=== PATIENT | male | born 1975 | race Two or more races ===

== ENCOUNTER 2020-06-24 06:42 | Inpatient (IN) | payer SELFPAY ==
[2020-06-24] VITALS (8 sets, daily range): BP systolic 87–109; BP diastolic 50–62
[~2020-06-24] VITALS: Ht 170.2 cm; Wt 97.7 kg
--- NOTE | 2020-06-24 07:07 | PHYS DOC ---
Past Medical History Past Medical History: Diabetes-Type II Past Surgical History: No Surgical History Smoking Status: Never Smoker Alcohol Use: None General Adult EDM: Chief Complaint: ABSCESS HPI: HPI: Patient is a 44 year old male with history of diabetes who presents with abscess on the right buttocks area. Patient noticed it approximately 5 days ago. Is been getting progressively worse over the weekend. He cannot sit without it being painful. He is having difficulty walking. Patient is compliant diabetic. Denies fever chills nausea vomiting diarrhea constipation numbness weakness dysuria hematuria abdominal pain. Patient has never had anything like this in the past. Patient is accompanied by his son who is translating. Review of Systems: Review of Systems: Review of Systems: Constitutional: Denies fever or chills Eyes: Denies redness or eye pain HENT: Denies nasal congestion or sore throat Respiratory: Denies cough or shortness of breath Cardiovascular: Denies chest pain or palpitations GI: denies abdominal pain and nausea, denies vomiting or diarrhea : Denies dysuria or hematuria Musculoskeletal: Denies back pain or joint pain Integument: Denies rash or skin lesions Neurologic: Denies headache, focal weakness or sensory changes Heart Score: C/O Chest Pain: No Physical Exam: PE: *GENERAL APPEARANCE: Awake and alert. Cooperative. No acute distress. Non toxic appearing. HEAD: Normocephalic. Atraumatic. EYES: EOM's grossly intact. Sclera anicteric. Conjunctiva clear ENT:. Airway patent. Mucous membranes moist. No trismus. Tolerating secretions. NECK: Supple. Trachea midline. HEART: Regular rate and rhythm. Radial pulses 2+. Good capillary refill. LUNGS: Respirations unlabored. Clear to auscultation bilaterally. No rales, rhonchi, wheezing or retractions. ABDOMEN: Soft. Non-tender. No guarding or rebound. . Area of fluctuance and induration on the right buttocks cheek in the gluteal cleft. Does appear to have some drainage. No tenderness palpation over the perineum. No crepitus in this area. No scrotal erythema or edema. EXTREMITIES: No acute deformities. No edema, erythema or calf tenderness. SKIN: Warm and dry. No rash. NEUROLOGICAL: Alert and oriented x3. No gross neurological deficits. Moves all 4 extremities spontaneously. PSYCHIATRIC: Normal mood. Current Patient Data: Vital Signs: Vital Signs Date Time Temp Pulse Resp B/P (MAP) Pulse Ox O2 Delivery O2 Flow Rate FiO2 06/24/20 06:49 99.1 87 18 127/82 (97) 96 Room Air 99.1 EKG: EKG: [] Radiology/Procedures: Radiology/Procedures: PROCEDURE: CT PELVIS W/CONTRAST Exam: CT pelvis with intravenous contrast Indication: Abscess in gluteal region. Evaluate for perirectal abscess. Comparison: None Technique: Helical CT imaging performed of the pelvis after the intravenous adm inistration of 75 mL Omnipaque 300 intravenous contrast. Sagittal and coronal reformats were obtained. One or more of the following individualized dose reduction techniques were utilized for this examination: 1. Automated exposure control 2. Adjustment of the mA and/or kV according to patient size 3. Use of iterative reconstruction technique. Findings: There is a subcutaneous abscess along the gluteal cleft on the right measuring approximately 4.0 x 1.6 x 2.3 cm (CC by transverse by AP). This has a sinus tract extending toward the anus where there is another collection measuring approximately 1.5 x 0.7 x 2.0 cm. No perirectal abscess. Small fat-containing umbilical hernia. Visualized bowel is unremarkable. Prostate gland is normal. Probable bladder diverticulum on the left. No lymphadenopathy. Impression: Subcutaneous abscess along the right gluteal cleft extending to the perianal region. No perirectal abscess. Electronically signed by: Melanie Esparza MD (06/24/2020 9:04 AM) [id number] DICTATED and SIGNED BY: MELANIE ESPARZA MD DATE: 06/24/20 [id number] 0 Course & Med Decision Making: Course & Med Decision Making Medical decision making: This is a 44-year-old male presents with abscess to the right buttocks area. Started 5 days ago has been getting progressively worse. Patient is diabetic. Temperature 99.1. Vital signs otherwise stable. Labs: No leukocytosis. Blood sugar 234. Nondiabetic ketoacidosis. CT pelvis: Abscess along the gluteal cleft. Sinus tract extending toward the anus where there is another collection. Patient was given broad-spectrum antibiotics. I did speak with the on-call general surgeon Dr. Greene. I explain the patient's symptoms CT findings and medical history. Agreed to evaluate the patient for I&D in the OR. At this time based on patient's symptoms and findings will admit to the hospital for further observation and evaluation. Spoke with patient. Agreeable to admission. They are aware of all labs and imaging. All questions answered and patient stable at time of admission. Anahi Disclaimer: Anahi Disclaimer: This electronic medical record was generated, in whole or in part, using a voice recognition dictation system. Departure Departure Impression: Primary Impression: Gluteal abscess Additional Impression: Hyperglycemia Disposition: ADMITTED INPT THIS HOSP (spoke with Dr. ng at 1045. Accepts admission. Will see the patient. Agrees to plan. Patient stable at time of admission.) Scripts Amoxicillin/Potassium Clav (AUGMENTIN 875-125 TABLET) 1 Each Tablet 1 TAB PO BID for infection for 10 Days, #20 TAB 0 Refills Prov: WALTER NG MD 06/25/20 Insulin Glargine,Hum.rec.anlog (LANTUS) 100 Unit/1 Ml Vial 8 UNIT SQ QHS for diabetes for 30 Days, #1 EACH Prov: WALTER NG MD 06/25/20 Lactobacillus Rhamnosus Gg (CULTURELLE) 1 Each Cap.sprink 1 CAP PO BID for supplement for 30 Days, #60 CAP Prov: WALTER NG MD 06/25/20 Docusate Sodium (DOK) 100 Mg Capsule 100 MG PO BID for prevent hard stools for 30 Days, #60 CAP Prov: WALTER NG MD 06/25/20 Acetaminophen (ACETAMINOPHEN) 325 Mg Tablet 650 MG PO PRN Q4HRS PRN for TEMP OVER 100.4F OR MILD PAIN for 30 Days, #60 TAB Prov: WALTER NG MD 06/25/20 KIANA VINCENT DO Jun 24, 2020 07:07
[2020-06-24] MEDS ORDERED: MORPHINE SULFATE 4 MG/ML VIAL. IM ONE (07:15)
[2020-06-24 07:35] LABS: BASO % 0 % (0-3); EOS # 0.1 x10^3/uL (0.0-0.7); EOS % 1 % (0-3); HEMATOCRIT 43.2 % (39.0-53.0); HEMOGLOBIN 14.7 g/dL (13.0-17.5); LYMPH # 1.8 x10^3/uL (1.0-4.8); LYMPH % 21 % (24-48); MEAN CORPUSCULAR HEMOGLOBIN 29 pg (25-35); MEAN CORPUSCULAR HGB CONC 34 g/dL (31-37); MEAN CORPUSCULAR VOLUME 85 fL (79-100); MONO # 0.7 x10^3/uL (0.0-1.1); MONO % 9 % (0-9); NEUT # 6.1 x10^3/uL (1.8-7.7); NEUT % 70 % (31-73); PLATELET COUNT 209 x10^3/uL (140-400); RED BLOOD COUNT 5.07 x10^6/uL (4.30-5.70); RED CELL DISTRIBUTION WIDTH 13.6 % (11.5-14.5); WHITE BLOOD COUNT 8.8 x10^3/uL (4.0-11.0)
[2020-06-24 07:46] LABS: CALCIUM 8.7 mg/dL (8.5-10.1); GFR 80.8; POTASSIUM 4.1 mmol/L (3.5-5.1)
[2020-06-24 07:52] LABS: ALBUMIN 2.7 g/dL (3.4-5.0); ALBUMIN/GLOBULIN RATIO 0.6 (1.0-1.7); TOTAL BILIRUBIN 0.2 mg/dL (0.2-1.0); TOTAL PROTEIN 7.6 g/dL (6.4-8.2)
[2020-06-24] MEDS ORDERED: IOHEXOL 350 MG/ML 100 ML VIAL. IV ONE (08:15)
[2020-06-24] MEDS ORDERED: CONTRAST GIVEN. MC PRN (08:30)
--- NOTE | 2020-06-24 09:06 | RAD ---
Exam: CT pelvis with intravenous contrast Indication: Abscess in gluteal region. Evaluate for perirectal abscess. Comparison: None Technique: Helical CT imaging performed of the pelvis after the intravenous administration of 75 mL O mnipaque 300 intravenous contrast. Sagittal and coronal reformats were obtained. One or more of the following individualized dose reduction techniques were utilized for this examinat ion: 1. Automated exposure control 2. Adjustment of the mA and/or kV according to patient size 3. Use of iterative reconstruction technique. Findings: There is a subcutaneous abscess along the gluteal cleft on the right measuring approximately 4.0 x 1. 6 x 2.3 cm (CC by transverse by AP). This has a sinus tract extending toward the anus where there is another collection measuring approximately 1.5 x 0.7 x 2.0 cm. No perirectal abscess. Small fat-conta ining umbilical hernia. Visualized bowel is unremarkable. Prostate gland is normal. Probable bladder diverticulum on the left. No lymphadenopathy. Impression: Subcutaneous abscess along the right gluteal cleft extending to the perianal region. No p erirectal abscess. Electronically signed by: Melanie Esparza MD (06/24/2020 9:04 AM) [id number]
[2020-06-24] MEDS: LIDOCAINE 1% PF 2 ML VIAL. SQ ONE ×2 (09:30→09:34)
[2020-06-24] MEDS ORDERED: VANCOMYCIN 2 GM in IV NORMAL SALINE 500ML BAG 500 ML IV ONE (10:30)
[2020-06-24] MEDS ORDERED: PIPERACILLIN/TAZOBACTAM 3.375 GM in IV NORMAL SALINE 50ML 50 ML IV ONE (10:30)
[2020-06-24] MEDS ORDERED: VANCOMYCIN 1.25 GM in IV NORMAL SALINE 250ML 250 ML IV ONE (10:30)
--- NOTE | 2020-06-24 10:31 | PDOC2 ---
[facility] 06/24/20 1031: CONSULT Date of Consult Date of Consult DATE: 06/24/20 TIME: 10:24 Reason for Consult Reason for Consult: abscess Referring Physician Referring Physician: ER Identification/Chief Complaint Chief Complaint gluteal pain Source Source: Chart review, Patient (family translates ) History of Present Illness Reason for Visit: Rectal pain and swelling since , did have some diarrhea last week. Did have some bloody drainage from area, but has continued to have worsening pain and swelling to area. No hx of skin infections Ct reviewed, subq extending to kavitha anal area Past Medical History Past Medical History hx of covid Endocrine: Diabetes Past Surgical History Past Surgical History: No pertinent history Family History Family History: Other (noncontributory to current illness ) Social History No ALCOHOL: none Drugs: None Lives: with Family Current Medications Current Medications Current Medications Morphine Sulfate (Morphine Sulfate) 4 mg 1X ONCE IM Last administered on 06/24/20at 07:32; Start 06/24/20 at 07:15; Stop 06/24/20 at 07:24; Status DC Iohexol (Omnipaque 350 Mg/ml) 75 ml 1X ONCE IV Last administered on 06/24/20at 0 8:36; Start 06/24/20 at 08:15; Stop 06/24/20 at 08:16; Status DC Info (CONTRAST GIVEN -- Rx MONITORING) 1 each PRN DAILY PRN MC SEE COMMENTS; Start 06/24/20 at 08:30; Stop 06/26/20 at 08:29 Lidocaine HCl (Xylocaine-Mpf 1% 2ml Vial) 10 ml 1X ONCE SQ Last administered on 06/24/20at 09:34; Start 06/24/20 at 09:30; Stop 06/24/20 at 09:31; Status DC Allergies Allergies: Coded Allergies: No Known Drug Allergies (Unverified , 06/24/20) ROS General: No: Chills, Other (fevers ) PSYCHOLOGICAL ROS: No: Anxiety, Depression Eyes: No Blurry vision, No Double vision HEENT: No: Heacaches, Sore Throat Hematological and Lymphatic: No: Bleeding Problems, Blood Clots Respiratory: No: Cough, Shortness of breath Cardiovascular: No Chest Pain, No Palpitations Gastrointestinal: No Nausea, No Vomiting, No Abdominal Pain Genitourinary: No Dysuria, No Incontinence Musculoskeletal: No Gait Disturbance, No Joint Pain, No Muscular Weakness Neurological: No Confusion, No Impaired Coord/balance Skin: Yes Other (swelling in rectal area ); No Pruritus Physical Exam General: Alert, Oriented X3, Cooperative Lungs: Clear to auscultation, Normal air movement Heart: Regular rate, Normal S1, Normal S2 Abdomen: Soft, No tenderness, No hepatosplenomegaly Extremities: No clubbing, No cyanosis Skin: Other (right gluteal area with significant tenderness on exam, difficult to fully examine due to pain, there is small amount of drainage, however still with induration, fluctunace ) Neuro: Normal speech, Sensation intact Psych/Mental Status: Mental status NL, Mood NL MUSCULOSKELETAL: No deformity, No swelling Vitals VITALS Vital Signs Date Time Temp Pulse Resp B/P (MAP) Pulse Ox O2 Delivery O2 Flow Rate FiO2 06/24/20 09:35 82 20 105/61 (76) 96 Room Air 06/24/20 06:49 99.1 99.1 Labs Labs Laboratory Tests Test 06/24/20 07:20 White Blood Count 8.8 x10^3/uL (4.0-11.0) Red Blood Count 5.07 x10^6/uL (4.30-5.70) Hemoglobin 14.7 g/dL (13.0-17.5) Hematocrit 43.2 % (39.0-53.0) Mean Corpuscular Volume 85 fL (79-100) Mean Corpuscular Hemoglobin 29 pg (25-35) Mean Corpuscular Hemoglobin Concent 34 g/dL (31-37) Red Cell Distribution Width 13.6 % (11.5-14.5) Platelet Count 209 x10^3/uL (140-400) Neutrophils (%) (Auto) 70 % (31-73) Lymphocytes (%) (Auto) 21 % (24-48) Monocytes (%) (Auto) 9 % (0-9) Eosinophils (%) (Auto) 1 % (0-3) Basophils (%) (Auto) 0 % (0-3) Neutrophils # (Auto) 6.1 x10^3/uL (1.8-7.7) Lymphocytes # (Auto) 1.8 x10^3/uL (1.0-4.8) Monocytes # (Auto) 0.7 x10^3/uL (0.0-1.1) Eosinophils # (Auto) 0.1 x10^3/uL (0.0-0.7) Basophils # (Auto) 0.0 x10^3/uL (0.0-0.2) Sodium Level 137 mmol/L (136-145) Potassium Level 4.1 mmol/L (3.5-5.1) Chloride Level 103 mmol/L (98-107) Carbon Dioxide Level 25 mmol/L (21-32) Anion Gap 9 (6-14) Blood Urea Nitrogen 12 mg/dL (8-26) Creatinine 1.0 mg/dL (0.7-1.3) Estimated GFR (Cockcroft-Gault) 80.8 BUN/Creatinine Ratio 12 (6-20) Glucose Level 234 mg/dL (70-99) Calcium Level 8.7 mg/dL (8.5-10.1) Total Bilirubin 0.2 mg/dL (0.2-1.0) Aspartate Amino Transf (AST/SGOT) 11 U/L (15-37) Alanine Aminotransferase (ALT/SGPT) 30 U/L (16-63) Alkaline Phosphatase 74 U/L (46-116) Total Protein 7.6 g/dL (6.4-8.2) Albumin 2.7 g/dL (3.4-5.0) Albumin/Globulin Ratio 0.6 (1.0-1.7) Laboratory Tests Test 06/24/20 07:20 White Blood Count 8.8 x10^3/uL (4.0-11.0) Red Blood Count 5.07 x10^6/uL (4.30-5.70) Hemoglobin 14.7 g/dL (13.0-17.5) Hematocrit 43.2 % (39.0-53.0) Mean Corpuscular Volume 85 fL (79-100) Mean Corpuscular Hemoglobin 29 pg (25-35) Mean Corpuscular Hemoglobin Concent 34 g/dL (31-37) Red Cell Distribution Width 13.6 % (11.5-14.5) Platelet Count 209 x10^3/uL (140-400) Neutrophils (%) (Auto) 70 % (31-73) Lymphocytes (%) (Auto) 21 % (24-48) Monocytes (%) (Auto) 9 % (0-9) Eosinophils (%) (Auto) 1 % (0-3) Basophils (%) (Auto) 0 % (0-3) Neutrophils # (Auto) 6.1 x10^3/uL (1.8-7.7) Lymphocytes # (Auto) 1.8 x10^3/uL (1.0-4.8) Monocytes # (Auto) 0.7 x10^3/uL (0.0-1.1) Eosinophils # (Auto) 0.1 x10^3/uL (0.0-0.7) Basophils # (Auto) 0.0 x10^3/uL (0.0-0.2) Sodium Level 137 mmol/L (136-145) Potassium Level 4.1 mmol/L (3.5-5.1) Chloride Level 103 mmol/L (98-107) Carbon Dioxide Level 25 mmol/L (21-32) Anion Gap 9 (6-14) Blood Urea Nitrogen 12 mg/dL (8-26) Creatinine 1.0 mg/dL (0.7-1.3) Estimated GFR (Cockcroft-Gault) 80.8 BUN/Creatinine Ratio 12 (6-20) Glucose Level 234 mg/dL (70-99) Calcium Level 8.7 mg/dL (8.5-10.1) Total Bilirubin 0.2 mg/dL (0.2-1.0) Aspartate Amino Transf (AST/SGOT) 11 U/L (15-37) Alanine Aminotransferase (ALT/SGPT) 30 U/L (16-63) Alkaline Phosphatase 74 U/L (46-116) Total Protein 7.6 g/dL (6.4-8.2) Albumin 2.7 g/dL (3.4-5.0) Albumin/Globulin Ratio 0.6 (1.0-1.7) Assessment/Plan Assessment/Plan gluteal abscess with tract to kavitha anal area--significant pain on exam--will likely require operative I&D NPO, abx will check SARA Fonseca MD 06/24/20 9795: CONSULT Assessment/Plan Assessment/Plan Pt seen and examined. Agree with Ms. Rock's note Pt with c/o buttock pain right perianal area with induration and fluctuance TO OR for I and D. R/R/R/B/A d/w pt and pt's supportive family. Thanks for consult! KOSTA ROCK APRN Jun 24, 2020 10:31 SARA PARK MD Jun 24, 2020 13:22
[2020-06-24] MEDS ORDERED: MORPHINE SULFATE 4 MG/ML VIAL. IV PRN (10:45)
--- NOTE | 2020-06-24 11:33 | PDOC1 ---
History and Physical Date of Admission Date of Admission DATE: 06/24/20 TIME: 11:33 Identification/Chief Complaint Chief Complaint HERMELINDO RECTAL PAIN Area of fluctuance and induration on the right buttocks cheek in the gluteal cleft. DICTATED History of Present Illness History of Present Illness presented with abscess on the right buttocks area. began approximately 5 days ago. Is been getting progressively worse over the weekend. He cannot sit without it being painful., difficulty walking. is diabetic. Denies fever chills nausea vomiting diarrhea constipation numbness weakness dysuria hematuria abdominal pain Past Medical History Endocrine: Diabetes Past Surgical History Past Surgical History: No pertinent history Family History Family History: Diabetes, Hypertension, Other (noncontributory to current illness ) Social History Smoke: No ALCOHOL: none Drugs: None Current Medications Current Medications Current Medications Morphine Sulfate (Morphine Sulfate) 4 mg 1X ONCE IM Last administered on 06/24/20at 07:32; Start 06/24/20 at 07:15; Stop 06/24/20 at 07:24; Status DC Iohexol (Omnipaque 350 Mg/ml) 75 ml 1X ONCE IV Last administered on 06/24/20at 08:36; Start 06/24/20 at 08:15; Stop 06/24/20 at 08:16; Status DC Info (CONTRAST GIVEN -- Rx MONITORING) 1 each PRN DAILY PRN MC SEE COMMENTS; Katherine tart 06/24/20 at 08:30; Stop 06/26/20 at 08:29 Lidocaine HCl (Xylocaine-Mpf 1% 2ml Vial) 10 ml 1X ONCE SQ ; Start 06/24/20 at 09:30; Stop 06/24/20 at 09:31; Status DC Vancomycin HCl 1.25 gm/Sodium Chloride 250 ml @ 166.667 mls/hr 1X ONCE IV ; Start 06/24/20 at 10:30; Stop 06/24/20 at 11:59; Status UNV Piperacillin Sod/ Tazobactam Sod 3.375 gm/Sodium Chloride 50 ml @ 100 mls/hr 1X ONCE IV Last administered on 06/24/20at 10:51; Start 06/24/20 at 10:30; Stop 06/24/20 at 10:59; Status DC Vancomycin HCl 2 gm/Sodium Chloride 500 ml @ 250 mls/hr 1X ONCE IV ; Start 06/24/20 at 10:30; Stop 06/24/20 at 12:29 Morphine Sulfate (Morphine Sulfate) 4 mg PRN Q4HRS PRN IV PAIN; Start 06/24/20 at 10:45; Stop 06/25/20 at 10:44 Allergies Allergies: Coded Allergies: No Known Drug Allergies (Unverified , 06/24/20) ROS General: No: Chills, Night Sweats, Fatigue, Malaise, Appetite, Other PSYCHOLOGICAL ROS: No: Anxiety, Behavioral Disorder, Concentration difficultie, Decreased libido, Depression, Disorientation, Hallucinations, Hostility, Irritablity, Memory difficulties, Mood Swings, Obsessive thoughts, Physical abuse, Sexual abuse, Sleep disturbances, Suicidal ideation, Other Eyes: No Blurry vision, No Decreased vision, No Double vision, No Dry eyes, No Excessive tearing, No Eye Pain, No Itchy Eyes, No Loss of vision, No Photophobia, No Scotomata, No Uses contacts, No Uses glasses, No Other HEENT: No: Heacaches, Visual Changes, Hearing change, Nasal congestion, Nasal discharge, Oral lesions, Sinus pain, Sore Throat, Epistaxis, Sneezing, Snoring, Tinnitus, Vertigo, Vocal changes, Other ALLERGY AND IMMUNOLOGY: No: Hives, Insect Bite Sensitivity, Itchy/Watery Eyes, Nasal Congestion, Post Nasal Drip, Seasonal Allergies, Other Hematological and Lymphatic: No: Bleeding Problems, Blood Clots, Blood Transfusions, Brusing, Night Sweats, Pallor, Swollen Lymph Nodes, Other ENDOCRINE: No: Breast Changes, Galactorrhea, Hair Pattern Changes, Hot Flashes, Malaise/lethargy, Mood Swings, Palpitations, Polydipsia/polyuria, Skin Changes, Temperature Intolerance, Unexpected Weight Changes, Other Breast: No New/Changing Breast Lumps, No Nipple changes, No Nipple discharge, No Other Respiratory: No: Cough, Hemoptysis, Orthopnea, Pleuritic Pain, Shortness of breath, SOB with excertion, Sputum Changes, Stridor, Tachypnea, Wheezing, Other Cardiovascular: No Chest Pain, No Palpitations, No Orthopnea, No Paroxysmal Noc. Dyspnea, No Edema, No Lt Headedness, No Other Gastrointestinal: No Nausea, No Vomiting, No Abdominal Pain, No Diarrhea, No Constipation, No Melena, No Hematochezia, No Other Genitourinary: No Dysuria, No Frequency, No Incontinence, No Hematuria, No Retention, No Discharge, No Urgency, No Pain, No Flank Pain, No Other, No , No , No , No , No , No , No Musculoskeletal: Yes Gait Disturbance Neurological: Yes Gait Disturbance; No Behavorial Changes, No Bowel/Bladder ControlChng, No Confusion, No Dizziness, No Headaches, No Impaired Coord/balance, No Memory Loss, No Numbness/Tingling, No Seizures, No Speech Problems, No Tremors, No Visual Changes, No Weakness, No Other Skin: Yes Skin Lesion Changes; No Dry Skin, No Eczema, No Hair Changes, No Lumps, No Mole Changes, No Mottling, No Nail Changes, No Pruritus, No Rash, No Other, No Acne Physical Exam Physical Exam Area of fluctuance and induration on the right buttocks cheek in the gluteal cleft., very tender General: Alert, Oriented X3, Cooperative, mild distress, moderate distress, severe distress HEENT: PERRLA Lungs: Clear to auscultation, Normal air movement Heart: RRR Breasts: Not examined Abdomen: Normal bowel sounds, Soft, No tenderness Male Genitals Exam: normal genitalia Rectal Exam: other ( Area of fluctuance and induration on the right buttocks cheek in the gluteal cleft.) PELVIC: Examination not indicated Extremities: No cyanosis, No edema, Normal pulses Neuro: Normal speech, Strength at 5/5 X4 ext, Cranial nerves 3-12 NL Psych/Mental Status: Mental status NL, Mood NL Vitals Vitals Vital Signs Date Time Temp Pulse Resp B/P (MAP) Pulse Ox O2 Delivery O2 Flow Rate FiO2 06/24/20 10:51 89 20 111/64 (80) 94 Room Air 06/24/20 06:49 99.1 99.1 Labs Labs Laboratory Tests Test 06/24/20 07:20 White Blood Count 8.8 x10^3/uL (4.0-11.0) Red Blood Count 5.07 x10^6/uL (4.30-5.70) Hemoglobin 14.7 g/dL (13.0-17.5) Hematocrit 43.2 % (39.0-53.0) Mean Corpuscular Volume 85 fL (79-100) Mean Corpuscular Hemoglobin 29 pg (25-35) Mean Corpuscular Hemoglobin Concent 34 g/dL (31-37) Red Cell Distribution Width 13.6 % (11.5-14.5) Platelet Count 209 x10^3/uL (140-400) Neutrophils (%) (Auto) 70 % (31-73) Lymphocytes (%) (Auto) 21 % (24-48) Monocytes (%) (Auto) 9 % (0-9) Eosinophils (%) (Auto) 1 % (0-3) Basophils (%) (Auto) 0 % (0-3) Neutrophils # (Auto) 6.1 x10^3/uL (1.8-7.7) Lymphocytes # (Auto) 1.8 x10^3/uL (1.0-4.8) Monocytes # (Auto) 0.7 x10^3/uL (0.0-1.1) Eosinophils # (Auto) 0.1 x10^3/uL (0.0-0.7) Basophils # (Auto) 0.0 x10^3/uL (0.0-0.2) Sodium Level 137 mmol/L (136-145) Potassium Level 4.1 mmol/L (3.5-5.1) Chloride Level 103 mmol/L (98-107) Carbon Dioxide Level 25 mmol/L (21-32) Anion Gap 9 (6-14) Blood Urea Nitrogen 12 mg/dL (8-26) Creatinine 1.0 mg/dL (0.7-1.3) Estimated GFR (Cockcroft-Gault) 80.8 BUN/Creatinine Ratio 12 (6-20) Glucose Level 234 mg/dL (70-99) Calcium Level 8.7 mg/dL (8.5-10.1) Total Bilirubin 0.2 mg/dL (0.2-1.0) Aspartate Amino Transf (AST/SGOT) 11 U/L (15-37) Alanine Aminotransferase (ALT/SGPT) 30 U/L (16-63) Alkaline Phosphatase 74 U/L (46-116) Total Protein 7.6 g/dL (6.4-8.2) Albumin 2.7 g/dL (3.4-5.0) Albumin/Globulin Ratio 0.6 (1.0-1.7) Laboratory Tests Test 06/24/20 07:20 White Blood Count 8.8 x10^3/uL (4.0-11.0) Red Blood Count 5.07 x10^6/uL (4.30-5.70) Hemoglobin 14.7 g/dL (13.0-17.5) Hematocrit 43.2 % (39.0-53.0) Mean Corpuscular Volume 85 fL (79-100) Mean Corpuscular Hemoglobin 29 pg (25-35) Mean Corpuscular Hemoglobin Concent 34 g/dL (31-37) Red Cell Distribution Width 13.6 % (11.5-14.5) Platelet Count 209 x10^3/uL (140-400) Neutrophils (%) (Auto) 70 % (31-73) Lymphocytes (%) (Auto) 21 % (24-48) Monocytes (%) (Auto) 9 % (0-9) Eosinophils (%) (Auto) 1 % (0-3) Basophils (%) (Auto) 0 % (0-3) Neutrophils # (Auto) 6.1 x10^3/uL (1.8-7.7) Lymphocytes # (Auto) 1.8 x10^3/uL (1.0-4.8) Monocytes # (Auto) 0.7 x10^3/uL (0.0-1.1) Eosinophils # (Auto) 0.1 x10^3/uL (0.0-0.7) Basophils # (Auto) 0.0 x10^3/uL (0.0-0.2) Sodium Level 137 mmol/L (136-145) Potassium Level 4.1 mmol/L (3.5-5.1) Chloride Level 103 mmol/L (98-107) Carbon Dioxide Level 25 mmol/L (21-32) Anion Gap 9 (6-14) Blood Urea Nitrogen 12 mg/dL (8-26) Creatinine 1.0 mg/dL (0.7-1.3) Estimated GFR (Cockcroft-Gault) 80.8 BUN/Creatinine Ratio 12 (6-20) Glucose Level 234 mg/dL (70-99) Calcium Level 8.7 mg/dL (8.5-10.1) Total Bilirubin 0.2 mg/dL (0.2-1.0) Aspartate Amino Transf (AST/SGOT) 11 U/L (15-37) Alanine Aminotransferase (ALT/SGPT) 30 U/L (16-63) Alkaline Phosphatase 74 U/L (46-116) Total Protein 7.6 g/dL (6.4-8.2) Albumin 2.7 g/dL (3.4-5.0) Albumin/Globulin Ratio 0.6 (1.0-1.7) Images Images Exam: CT pelvis with intravenous contrast Indication: Abscess in gluteal region. Evaluate for perirectal abscess. Comparison: None Technique: Helical CT imaging performed of the pelvis after the intravenous admi nistration of 75 mL Omnipaque 300 intravenous contrast. Sagittal and coronal reformats were obtained. One or more of the following individualized dose reduction techniques were utilized for this examination: 1. Automated exposure control 2. Adjustment of the mA and/or kV according to patient size 3. Use of iterative reconstruction technique. Findings: There is a subcutaneous abscess along the gluteal cleft on the right measuring approximately 4.0 x 1.6 x 2.3 cm (CC by transverse by AP). This has a sinus tract extending toward the anus where there is another collection measuring approximately 1.5 x 0.7 x 2.0 cm. No perirectal abscess. Small fat-containing umbilical hernia. Visualized bowel is unremarkable. Prostate gland is normal. Probable bladder diverticulum on the left. No lymphadenopathy. Impression: Subcutaneous abscess along the right gluteal cleft extending to the perianal region. No perirectal abscess. Electronically signed by: Melanie Esparza MD (06/24/2020 9:04 AM) [id number] DICTATED and SIGNED BY: MELANIE ESPARZA MD DATE: 06/24/20 [id number] VTE Prophylaxis Ordered VTE Prophylaxis Devices: No VTE Pharmacological Prophylaxi: Yes Assessment/Plan Assessment/Plan IMPRESSION ACUTE subcutaneous abscess along the gluteal cleft on the right measuring approximately 4.0 x 1.6 x 2.3 cm (CC by transverse by AP). This has a sinus tract extending toward the anus where there is another collection measuring approximately 1.5 x 0.7 x 2.0 cm. No perirectal abscess. Small fat-containing u mbilical hernia. Visualized bowel is unremarkable. DIABETES gluteal abscess with tract to hermelindo anal area--significant pain on exam--will require operative I&D PLAN ADMIT IV FLUIDS NPO, IV ANTIBIOTICS SCREEN Covid BLOOD CULT SURGERY CONSULT ID CONSULT ss insulin DVT PROPHYLAXIS 65 MIN Justifications for Admission Other Justification WALTER NG MD Jun 24, 2020 11:33
[2020-06-24] MEDS ORDERED: ONDANSETRON PF 4 MG/2 ML VIAL. IV PRN (11:45)
[2020-06-24] MEDS ORDERED: LORazepam 0.5 MG TABLET PO PRN (11:45)
[2020-06-24] MEDS ORDERED: ALBUTEROL SULFATE 2.5 MG/3 ML NEBU. NEB PRN (11:45)
[2020-06-24] MEDS ORDERED: MAG HYDROX/ALUMINUM HYD/SIMETH 30 ML ORAL.SUSP PO PRN (11:45)
[2020-06-24] MEDS ORDERED: cloNIDine HCL 0.1 MG TABLET PO PRN (11:45)
[2020-06-24] MEDS ORDERED: guaiFENesin ORAL 200 MG/10 ML LIQUID. PO PRN (11:45)
[2020-06-24] MEDS ORDERED: ZOLPIDEM 5 MG TABLET. PO PRN (11:45)
[2020-06-24] MEDS ORDERED: DOCUSATE SODIUM 100 MG CAPSULE. PO PRN (11:45)
[2020-06-24] MEDS ORDERED: ACETAMINOPHEN 325 MG TABLET. PO PRN (11:45)
[2020-06-24] MEDS ORDERED: 0.9 % SODIUM CHLORIDE 10 ML DISP.SYRIN. IV PRN (11:45)
[2020-06-24] MEDS: INSULIN LISPRO 300 UNITS/3 ML VIAL. SQ SCH ×2 (12:00→17:48)
[2020-06-24] MEDS: ENOXAPARIN 40 MG/0.4 ML SYRINGE. SQ SCH (12:00)
[2020-06-24] MEDS ORDERED: HYDROmorphone 2 MG/ML VIAL IVP PRN ×2 (12:00→13:45)
[2020-06-24] MEDS ORDERED: DEXTROSE 50% 25 GM / 50ML DISP.SYRIN. IV PRN (12:00)
[2020-06-24] MEDS ORDERED: VANCOMYCIN PER PHARMACY MC PRN (12:00)
[2020-06-24] MEDS ORDERED: PIP/TAZO PER PHARMACY MC PRN (12:00)
--- NOTE | 2020-06-24 12:32 | HP ---
ADMIT DATE: 06/24/2020 CHIEF COMPLAINT: Perirectal pain with discomfort, drainage and bleeding. HISTORY OF PRESENT ILLNESS: This 44-year-old male presented with an abscess to the ER in the right buttocks, which began 5 days prior to admission. Pain has become progressively worse over the weekend. He cannot ambulate and is diabetic. He is accompanied by his son who notes no fever or vomiting, just severe pain. ct concerning for kavitha-rectal abscess PAST MEDICAL HISTORY: Significant for diabetes. FAMILY HISTORY: Hypertension and diabetes. SOCIAL HISTORY: No tobacco, alcohol or drug use. 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 CURRENT MEDICATIONS: Please see MAR. REVIEW OF SYSTEMS: Denies chills, fever, malaise. Denies decreased vision, headaches. Eyes insect sensitivity. Nasal congestion. Denies chest pain, shortness of breath, abdominal pain, diarrhea. Does have some rectal bleeding. No dysuria or incontinence. No hematuria. No urinary hesitancy. Denies bladder or bowel dysfunction. Denies eczema or hair changes. Complains mainly of perirectal pain and severe pain with ambulation and at rest. PHYSICAL EXAMINATION NECK: Supple. HEENT: Throat and pharynx are clear. RECTAL: There is an area of fluctuance and induration of the right buttocks and gluteal cleft, it was very tender. LUNGS: Clear. CARDIOVASCULAR: Regular rate and rhythm. ABDOMEN: Soft. Bowel sounds are normal. EXTREMITIES: Without cyanosis or edema. Capillary refill is less than 2 seconds. Normal speech. Strength is normal in all extremities. NEUROLOGIC: Cranial nerves 2-12 are grossly intact. Mental status is normal. Recent and remote memory are intact. Muscles of mastication are symmetric bilaterally. VITAL SIGNS: Temperature 99.1, blood pressure 111/64 was lower on admission, O2 sat 94%. LABORATORY DATA: White count is 8.8, hemoglobin 14.7, platelets 209,000, MCV is 85. Differential, 70 segs, 21 lymphocytes. Sodium is 137, potassium 4.1, CO2 of 35, BUN 12, creatinine 1.0, glucose 234, albumin 2.7. Lactic acid is pending. CT shows a subcutaneous abscess 4 x 1.6 x 2.3 cm with a sinus tract extending towards the anus, another collection of 1.5 x 0.7 x 2 cm. No perirectal abscesses seen. There is a small fat-containing umbilical hernia. ASSESSMENT: 1. Acute subcutaneous abscess involving the gluteal cleft on the right. 2. Fat-containing umbilical hernia. 3. Diabetes. 4. Perianal tract will likely require incision and drainage. c/w kavitha-rectal abscess PLAN: Admit. a1c , IV fluid, sliding scale insulin. ID consult, Surgery consult. Blood cultures, screening for COVID. IV Zosyn and vancomycin, pending cultures. DVT prophylaxis.sq lovenox Anticipate length of stay greater than 48 hours due to the severity of abscess and diabetes as a complicating factor. Time spent with the patient exam, chart review was 67 minutes, greater than 50% of time was spent with the patient exam, chart review and the patient care coordination. WALTER NG MD DR: GUILLERMO/august JOB#: [id number] / [id number] SONIA
[2020-06-24] MEDS ORDERED: diphenhydrAMINE 50 MG/ML VIAL ONE (12:50)
[2020-06-24] MEDS ORDERED: diphenhydrAMINE 50 MG/ML VIAL IVP ONE (13:00)
[2020-06-24] MEDS ORDERED: BUPIVACAINE-EPI 0.5% 30 ML VIAL KIT. ONE (13:28)
[2020-06-24] MEDS: INSULIN LISPRO 100 UNIT/ML 3ML VIAL for OP,RR ONLY. SQ PRN ×2 (13:28→14:33)
[2020-06-24] MEDS ORDERED: fentaNYL PF VIAL 100 MCG/2 ML VIAL IVP PRN ×2 (13:45)
[2020-06-24] MEDS ORDERED: PROCHLORPERAZINE 10 MG/2 ML VIAL. IVP PRN (13:45)
[2020-06-24] MEDS ORDERED: fentaNYL PF VIAL 100 MCG/2 ML VIAL ONE (13:45)
[2020-06-24] MEDS ORDERED: IV RINGERS,LACTATED 1000ML 1,000 ML IV SCH (13:45)
[2020-06-24] MEDS ORDERED: MORPHINE SULFATE 2 MG/ML VIAL. IVP PRN (13:45)
[2020-06-24] MEDS ORDERED: PHENYLEPHRINE in 0.9% NACL PF 1 MG/10 ML SYRINGE. IV ONE (13:58)
[2020-06-24] MEDS ORDERED: ONDANSETRON PF 4 MG/2 ML VIAL. ONE (14:00)
[2020-06-24] MEDS ORDERED: LIDOCAINE 2% PF 5 ML VIAL. ONE (14:00)
[2020-06-24] MEDS ORDERED: PROPOFOL 10 MG/ML (20ML) VIAL. IV ONE ×2 (14:00→14:06)
[2020-06-24] MEDS ORDERED: DEXAMETHASONE SOD PHOS 4 MG/ML VIAL ONE (14:00)
[2020-06-24] MEDS ORDERED: SEVOFLURANE 31 TO 60 MINUTES. IH ONE (14:01)
[2020-06-24] MEDS ORDERED: KETOROLAC 30 MG/ML VIAL. ONE (14:01)
[2020-06-24] MEDS: IV NORMAL SALINE 1000ML BAG 1,000 ML IV SCH ×3 (14:30→21:45)
[2020-06-24] MEDS ORDERED: ONDANSETRON PF 4 MG/2 ML VIAL. IVP PRN (14:30)
[2020-06-24] MEDS ORDERED: NALOXONE 0.4 MG/ML VIAL. IV PRN (14:30)
--- NOTE | 2020-06-24 14:35 | PDOC4 ---
OPERATIVE NOTE Date: Date: Jun 24, 2020 Pre-Op Diagnosis: Right perirectal abscess Post-Op Diagnosis: same Procedure Performed: incision and drainage of right perirectal abscess Surgeon: Dmitri Park Anesthesia Type: GETA Blood Loss: 50 Specimans Obtained: cultures Findings: right perirectal abscess, no obvious fistula Complications: none Operative Note: After obtaining informed consent, patient was taken to OR, induced under GETA and prepped in the usual fashion in a left side down decubitus position. Right medial buttock with draining abscess. Cultures obtained. Pocket opened up digitally. Counter incision made laterally and reginaldo passed and secured with 3 0 nylon. Copious irrigation. No evidence of bleeding or other pathology. Wound packed with iodoform gauze. Dressing placed. Patient tolerated procedure well and sent to PACU in stable condition. All counts correct. Wound class is 4. SARA PARK MD Jun 24, 2020 14:35
[2020-06-24] MEDS: PIPERACILLIN/TAZOBACTAM 3.375 GM in IV NORMAL SALINE 50ML 50 ML IV SCH (18:00)
[2020-06-24] MEDS: DOCUSATE SODIUM 100 MG CAPSULE. PO SCH (20:34)
[2020-06-25] MEDS ORDERED: VANCOMYCIN 1.5 GM in IV NORMAL SALINE 500ML BAG 500 ML IV SCH
[2020-06-25] MEDS: PIPERACILLIN/TAZOBACTAM 3.375 GM in IV NORMAL SALINE 50ML 50 ML IV SCH ×2 (00:16→05:57)
[2020-06-25 01:09] LABS: HEMOGLOBIN A1C 9.1 % (4.8-5.6)
[2020-06-25 03:00] VITALS: BP 118/68
[2020-06-25] MEDS: IV NORMAL SALINE 1000ML BAG 1,000 ML IV SCH ×3 (05:57→17:45)
[2020-06-25 07:00] VITALS: BP 133/60
[2020-06-25 07:34] LABS: BASO % 0 % (0-3); EOS % 0 % (0-3); HEMATOCRIT 40.3 % (39.0-53.0); HEMOGLOBIN 13.7 g/dL (13.0-17.5); LYMPH # 1.6 x10^3/uL (1.0-4.8); LYMPH % 18 % (24-48); MEAN CORPUSCULAR HEMOGLOBIN 29 pg (25-35); MEAN CORPUSCULAR HGB CONC 34 g/dL (31-37); MEAN CORPUSCULAR VOLUME 85 fL (79-100); MONO # 0.6 x10^3/uL (0.0-1.1); MONO % 6 % (0-9); NEUT # 6.8 x10^3/uL (1.8-7.7); NEUT % 76 % (31-73); PLATELET COUNT 246 x10^3/uL (140-400); RED BLOOD COUNT 4.73 x10^6/uL (4.30-5.70); WHITE BLOOD COUNT 8.9 x10^3/uL (4.0-11.0)
[2020-06-25 07:53] LABS: CALCIUM 8.4 mg/dL (8.5-10.1); GFR 80.8; POTASSIUM 3.7 mmol/L (3.5-5.1)
[2020-06-25 07:57] LABS: ALBUMIN 2.4 g/dL (3.4-5.0); ALBUMIN/GLOBULIN RATIO 0.5 (1.0-1.7); TOTAL BILIRUBIN 0.4 mg/dL (0.2-1.0)
--- NOTE | 2020-06-25 08:04 | PDOC ---
PROGRESS NOTES Date of Service: DATE: 06/25/20 TIME: 08:03 Chief Complaint Chief Complaint ASSESSMENT: 1. Acute subcutaneous abscess involving the gluteal cleft on the right. 2. Fat-containing umbilical hernia. 3. Diabetes. 4. Perianal tract will likely require incision and drainage. c/w kavitha-rectal abscess PLAN: Admit. a1c , IV fluid, sliding scale insulin. ID consult, Surgery consult. Blood cultures, screening for COVID. IV Zosyn and vancomycin, pending cultures. DVT prophylaxis.sq lovenox Anticipate length of stay greater than 48 hours due to the severity of abscess and diabetes as a complicating factor. Time spent with the patient exam, chart review was 27 minutes, greater than 50% of time was spent with the patient exam, chart review and patient care coordination. D/W RN IN ROOM For possible discharge 06-25 , if okay from surgery. The patient will have followup with surgery History of Present Illness History of Present Illness PATIENT: JANETTE KESSLER ACCOUNT: [id number] : 1975 LOC: [address] [place] [address] AGE: 44 SEX: M STATUS: ADM IN LOCATION: [address] [place] [address] ADMIT DATE: 06/24/2020 CHIEF COMPLAINT: Perirectal pain with discomfort, drainage and bleeding. HISTORY OF PRESENT ILLNESS: This 44-year-old male presented with an abscess to the ER in the right buttocks, which began 5 days prior to admission. Pain has become progressively worse over the weekend. He cannot ambulate and is diabetic. He is accompanied by his son who speeks korean well , who notes no fever or vomiting, just severe pain. ct was concerning for kavitha-rectal abscess PAST MEDICAL HISTORY: Significant for diabetes. FAMILY HISTORY: Hypertension and diabetes. SOCIAL HISTORY: No tobacco, alcohol or drug use. 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 CURRENT MEDICATIONS: Please see MAR. REVIEW OF SYSTEMS: Denies chills, fever, malaise. Denies decreased vision, headaches. Eyes insect sensitivity. Nasal congestion. Denies chest pain, shortness of breath, abdominal pain, diarrhea. Does have some rectal bleeding. No dysuria or incontinence. No hematuria. No urinary hesitancy. Denies bladder or bowel dysfunction. Denies eczema or hair changes. Complains mainly of perirectal pain and severe pain with ambulation and at rest. Vitals Vitals Vital Signs Date Time Temp Pulse Resp B/P (MAP) Pulse Ox O2 Delivery O2 Flow Rate FiO2 06/25/20 03:00 118/68 (85) 94 Room Air 06/24/20 23:00 98.4 18 2.0 98.4 06/24/20 17:22 78 Physical Exam General: Alert, Oriented X3, Cooperative, No acute distress, severe distress Heart: Regular rate, Normal S1, Normal S2 Lungs: Clear Abdomen: Normal bowel sounds, Soft, No tenderness Extremities: No cyanosis, No edema, Normal pulses Skin: Other (right gluteal area with significant tenderness on exam, difficult to fully examine due to pain, there is small amount of drainage, however still with induration, fluctunace ) Labs LABS Signed PATIENT: JANETTE KESSLER ACCOUNT: [id number] : 1975 LOCATION: ER AGE: 44 SEX: M EXAM STATUS: REG ER ORD. PHYSICIAN: KIANA VINCENT DO REASON: abscess butt, r/o perirectal abscess PROCEDURE: CT PELVIS W/CONTRAST Exam: CT pelvis with intravenous contrast Indication: Abscess in gluteal region. Evaluate for perirectal abscess. Comparison: None Technique: Helical CT imaging performed of the pelvis after the intravenous administration of 75 mL Omnipaque 300 intravenous contrast. Sagittal and coronal reformats were obtained. One or more of the following individualized dose reduction techniques were utilized for this examination: 1. Automated exposure control 2. Adjustment of the mA and/or kV according to patient size 3. Use of iterative reconstruction technique. Findings: There is a subcutaneous abscess along the gluteal cleft on the right measuring approximately 4.0 x 1.6 x 2.3 cm (CC by transverse by AP). This has a sinus tract extending toward the anus where there is another collection measuring approximately 1.5 x 0.7 x 2.0 cm. No perirectal abscess. Small fat-containing umbilical hernia. Visualized bowel is unremarkable. Prostate gland is normal. Probable bladder diverticulum on the left. No lymphadenopathy. Impression: Subcutaneous abscess along the right gluteal cleft extending to the perianal region. No perirectal abscess. Electronically signed by: Melanie Esparza MD (06/24/2020 9:04 AM) [id number] DICTATED and SIGNED BY: MELANIE ESPARZA MD DATE: 06/24/20 [id number] Laboratory Tests Test 06/24/20 11:13 06/24/20 11:25 06/24/20 13:05 06/24/20 14:31 Coronavirus (PCR) Not detected (Not Detected) SARS-CoV-2 Antigen (Rapid) Negative (NEGATIVE) Lactic Acid Level 1.5 mmol/L (0.4-2.0) Glucose (Fingerstick) 204 mg/dL (70-99) 283 mg/dL (70-99) Test 06/24/20 16:03 06/24/20 20:56 06/25/20 06:30 06/25/20 07:57 Glucose (Fingerstick) 221 mg/dL (70-99) 306 mg/dL (70-99) 205 mg/dL (70-99) White Blood Count 8.9 x10^3/uL (4.0-11.0) Red Blood Count 4.73 x10^6/uL (4.30-5.70) Hemoglobin 13.7 g/dL (13.0-17.5) Hematocrit 40.3 % (39.0-53.0) Mean Corpuscular Volume 85 fL (79-100) Mean Corpuscular Hemoglobin 29 pg (25-35) Mean Corpuscular Hemoglobin Concent 34 g/dL (31-37) Red Cell Distribution Width 13.0 % (11.5-14.5) Platelet Count 246 x10^3/uL (140-400) Neutrophils (%) (Auto) 76 % (31-73) Lymphocytes (%) (Auto) 18 % (24-48) Monocytes (%) (Auto) 6 % (0-9) Eosinophils (%) (Auto) 0 % (0-3) Basophils (%) (Auto) 0 % (0-3) Neutrophils # (Auto) 6.8 x10^3/uL (1.8-7.7) Lymphocytes # (Auto) 1.6 x10^3/uL (1.0-4.8) Monocytes # (Auto) 0.6 x10^3/uL (0.0-1.1) Eosinophils # (Auto) 0.0 x10^3/uL (0.0-0.7) Basophils # (Auto) 0.0 x10^3/uL (0.0-0.2) Sodium Level 138 mmol/L (136-145) Potassium Level 3.7 mmol/L (3.5-5.1) Chloride Level 103 mmol/L (98-107) Carbon Dioxide Level 27 mmol/L (21-32) Anion Gap 8 (6-14) Blood Urea Nitrogen 11 mg/dL (8-26) Creatinine 1.0 mg/dL (0.7-1.3) Estimated GFR (Cockcroft-Gault) 80.8 BUN/Creatinine Ratio 11 (6-20) Glucose Level 203 mg/dL (70-99) Calcium Level 8.4 mg/dL (8.5-10.1) Total Bilirubin 0.4 mg/dL (0.2-1.0) Aspartate Amino Transf (AST/SGOT) 24 U/L (15-37) Alanine Aminotransferase (ALT/SGPT) 78 U/L (16-63) Alkaline Phosphatase 124 U/L (46-116) Total Protein 7.0 g/dL (6.4-8.2) Albumin 2.4 g/dL (3.4-5.0) Albumin/Globulin Ratio 0.5 (1.0-1.7) Assessment and Plan Assessmemt and Plan Problems Medical Problems: (1) Gluteal abscess Status: Acute (2) Hyperglycemia Status: Acute Comment Review of Relevant I have reviewed the following items ange (where applicable) has been applied. Labs Laboratory Tests Test 06/24/20 07:20 06/24/20 11:13 06/24/20 11:25 06/24/20 13:05 White Blood Count 8.8 x10^3/uL (4.0-11.0) Red Blood Count 5.07 x10^6/uL (4.30-5.70) Hemoglobin 14.7 g/dL (13.0-17.5) Hematocrit 43.2 % (39.0-53.0) Mean Corpuscular Volume 85 fL (79-100) Mean Corpuscular Hemoglobin 29 pg (25-35) Mean Corpuscular Hemoglobin Concent 34 g/dL (31-37) Red Cell Distribution Width 13.6 % (11.5-14.5) Platelet Count 209 x10^3/uL (140-400) Neutrophils (%) (Auto) 70 % (31-73) Lymphocytes (%) (Auto) 21 % (24-48) Monocytes (%) (Auto) 9 % (0-9) Eosinophils (%) (Auto) 1 % (0-3) Basophils (%) (Auto) 0 % (0-3) Neutrophils # (Auto) 6.1 x10^3/uL (1.8-7.7) Lymphocytes # (Auto) 1.8 x10^3/uL (1.0-4.8) Monocytes # (Auto) 0.7 x10^3/uL (0.0-1.1) Eosinophils # (Auto) 0.1 x10^3/uL (0.0-0.7) Basophils # (Auto) 0.0 x10^3/uL (0.0-0.2) Sodium Level 137 mmol/L (136-145) Potassium Level 4.1 mmol/L (3.5-5.1) Chloride Level 103 mmol/L (98-107) Carbon Dioxide Level 25 mmol/L (21-32) Anion Gap 9 (6-14) Blood Urea Nitrogen 12 mg/dL (8-26) Creatinine 1.0 mg/dL (0.7-1.3) Estimated GFR (Cockcroft-Gault) 80.8 BUN/Creatinine Ratio 12 (6-20) Glucose Level 234 mg/dL (70-99) Hemoglobin A1c 9.1 % (4.8-5.6) Calcium Level 8.7 mg/dL (8.5-10.1) Total Bilirubin 0.2 mg/dL (0.2-1.0) Aspartate Amino Transf (AST/SGOT) 11 U/L (15-37) Alanine Aminotransferase (ALT/SGPT) 30 U/L (16-63) Alkaline Phosphatase 74 U/L (46-116) Total Protein 7.6 g/dL (6.4-8.2) Albumin 2.7 g/dL (3.4-5.0) Albumin/Globulin Ratio 0.6 (1.0-1.7) Coronavirus (PCR) Not detected (Not Detected) SARS-CoV-2 Antigen (Rapid) Negative (NEGATIVE) Lactic Acid Level 1.5 mmol/L (0.4-2.0) Glucose (Fingerstick) 204 mg/dL (70-99) Test 06/24/20 14:31 06/24/20 16:03 06/24/20 20:56 06/25/20 06:30 Glucose (Fingerstick) 283 mg/dL (70-99) 221 mg/dL (70-99) 306 mg/dL (70-99) White Blood Count 8.9 x10^3/uL (4.0-11.0) Red Blood Count 4.73 x10^6/uL (4.30-5.70) Hemoglobin 13.7 g/dL (13.0-17.5) Hematocrit 40.3 % (39.0-53.0) Mean Corpuscular Volume 85 fL (79-100) Mean Corpuscular Hemoglobin 29 pg (25-35) Mean Corpuscular Hemoglobin Concent 34 g/dL (31-37) Red Cell Distribution Width 13.0 % (11.5-14.5) Platelet Count 246 x10^3/uL (140-400) Neutrophils (%) (Auto) 76 % (31-73) Lymphocytes (%) (Auto) 18 % (24-48) Monocytes (%) (Auto) 6 % (0-9) Eosinophils (%) (Auto) 0 % (0-3) Basophils (%) (Auto) 0 % (0-3) Neutrophils # (Auto) 6.8 x10^3/uL (1.8-7.7) Lymphocytes # (Auto) 1.6 x10^3/uL (1.0-4.8) Monocytes # (Auto) 0.6 x10^3/uL (0.0-1.1) Eosinophils # (Auto) 0.0 x10^3/uL (0.0-0.7) Basophils # (Auto) 0.0 x10^3/uL (0.0-0.2) Sodium Level 138 mmol/L (136-145) Potassium Level 3.7 mmol/L (3.5-5.1) Chloride Level 103 mmol/L (98-107) Carbon Dioxide Level 27 mmol/L (21-32) Anion Gap 8 (6-14) Blood Urea Nitrogen 11 mg/dL (8-26) Creatinine 1.0 mg/dL (0.7-1.3) Estimated GFR (Cockcroft-Gault) 80.8 BUN/Creatinine Ratio 11 (6-20) Glucose Level 203 mg/dL (70-99) Calcium Level 8.4 mg/dL (8.5-10.1) Total Bilirubin 0.4 mg/dL (0.2-1.0) Aspartate Amino Transf (AST/SGOT) 24 U/L (15-37) Alanine Aminotransferase (ALT/SGPT) 78 U/L (16-63) Alkaline Phosphatase 124 U/L (46-116) Total Protein 7.0 g/dL (6.4-8.2) Albumin 2.4 g/dL (3.4-5.0) Albumin/Globulin Ratio 0.5 (1.0-1.7) Test 06/25/20 07:57 Glucose (Fingerstick) 205 mg/dL (70-99) Laboratory Tests Test 06/24/20 11:13 06/24/20 11:25 06/24/20 13:05 06/24/20 14:31 Coronavirus (PCR) Not detected (Not Detected) SARS-CoV-2 Antigen (Rapid) Negative (NEGATIVE) Lactic Acid Level 1.5 mmol/L (0.4-2.0) Glucose (Fingerstick) 204 mg/dL (70-99) 283 mg/dL (70-99) Test 06/24/20 16:03 06/24/20 20:56 06/25/20 06:30 06/25/20 07:57 Glucose (Fingerstick) 221 mg/dL (70-99) 306 mg/dL (70-99) 205 mg/dL (70-99) White Blood Count 8.9 x10^3/uL (4.0-11.0) Red Blood Count 4.73 x10^6/uL (4.30-5.70) Hemoglobin 13.7 g/dL (13.0-17.5) Hematocrit 40.3 % (39.0-53.0) Mean Corpuscular Volume 85 fL (79-100) Mean Corpuscular Hemoglobin 29 pg (25-35) Mean Corpuscular Hemoglobin Concent 34 g/dL (31-37) Red Cell Distribution Width 13.0 % (11.5-14.5) Platelet Count 246 x10^3/uL (140-400) Neutrophils (%) (Auto) 76 % (31-73) Lymphocytes (%) (Auto) 18 % (24-48) Monocytes (%) (Auto) 6 % (0-9) Eosinophils (%) (Auto) 0 % (0-3) Basophils (%) (Auto) 0 % (0-3) Neutrophils # (Auto) 6.8 x10^3/uL (1.8-7.7) Lymphocytes # (Auto) 1.6 x10^3/uL (1.0-4.8) Monocytes # (Auto) 0.6 x10^3/uL (0.0-1.1) Eosinophils # (Auto) 0.0 x10^3/uL (0.0-0.7) Basophils # (Auto) 0.0 x10^3/uL (0.0-0.2) Sodium Level 138 mmol/L (136-145) Potassium Level 3.7 mmol/L (3.5-5.1) Chloride Level 103 mmol/L (98-107) Carbon Dioxide Level 27 mmol/L (21-32) Anion Gap 8 (6-14) Blood Urea Nitrogen 11 mg/dL (8-26) Creatinine 1.0 mg/dL (0.7-1.3) Estimated GFR (Cockcroft-Gault) 80.8 BUN/Creatinine Ratio 11 (6-20) Glucose Level 203 mg/dL (70-99) Calcium Level 8.4 mg/dL (8.5-10.1) Total Bilirubin 0.4 mg/dL (0.2-1.0) Aspartate Amino Transf (AST/SGOT) 24 U/L (15-37) Alanine Aminotransferase (ALT/SGPT) 78 U/L (16-63) Alkaline Phosphatase 124 U/L (46-116) Total Protein 7.0 g/dL (6.4-8.2) Albumin 2.4 g/dL (3.4-5.0) Albumin/Globulin Ratio 0.5 (1.0-1.7) Microbiology 06/24/20 Gram Stain - Final, Resulted 06/24/20 Aerobic and Anaerobic Culture, Resulted Pending Medications Current Medications Morphine Sulfate (Morphine Sulfate) 4 mg 1X ONCE IM Last administered on 06/24/20at 07:32; Start 06/24/20 at 07:15; Stop 06/24/20 at 07:24; Status DC Iohexol (Omnipaque 350 Mg/ml) 75 ml 1X ONCE IV Last administered on 06/24/20at 08:36; Start 06/24/20 at 08:15; Stop 06/24/20 at 08:16; Status DC Info (CONTRAST GIVEN -- Rx MONITORING) 1 each PRN DAILY PRN MC SEE COMMENTS; Start 06/24/20 at 08:30; Stop 06/26/20 at 08:29 Lidocaine HCl (Xylocaine-Mpf 1% 2ml Vial) 10 ml 1X ONCE SQ ; Start 06/24/20 at 09:30; Stop 06/24/20 at 09:31; Status DC Vancomycin HCl 1.25 gm/Sodium Chloride 250 ml @ 166.667 mls/hr 1X ONCE IV ; Start 06/24/20 at 10:30; Stop 06/24/20 at 11:59; Status UNV Piperacillin Sod/ Tazobactam Sod 3.375 gm/Sodium Chloride 50 ml @ 100 mls/hr 1X ONCE IV Last administered on 06/24/20at 10:51; Start 06/24/20 at 10:30; Stop 06/24/20 at 10:59; Status DC Vancomycin HCl 2 gm/Sodium Chloride 500 ml @ 250 mls/hr 1X ONCE IV Last administered on 06/24/20at 12:08; Start 06/24/20 at 10:30; Stop 06/24/20 at 12:49; Status DC Morphine Sulfate (Morphine Sulfate) 4 mg PRN Q4HRS PRN IV PAIN; Start 06/24/20 at 10:45; Stop 06/25/20 at 10:44 Sodium Chloride (Normal Saline Flush) 3 ml QSHIFT PRN IV AFTER MEDS AND BLOOD DRAWS; Start 06/24/20 at 11:45 Sodium Chloride 1,000 ml @ 100 mls/hr Q10H IV Last administered on 06/25/20at 05:57; Start 06/24/20 at 11:45 Ondansetron HCl (Zofran) 4 mg PRN Q4HRS PRN IV NAUSEA/VOMITING; Start 06/24/20 at 11:45 Zolpidem Tartrate (Ambien) 5 mg PRN QHS PRN PO INSOMNIA; Start 06/24/20 at 11:45 Acetaminophen (Tylenol) 650 mg PRN Q4HRS PRN PO TEMP OVER 100.4F OR MILD PAIN; Start 06/24/20 at 11:45 Al Hydroxide/Mg Hydroxide (Mylanta Plus Xs) 30 ml PRN DAILY PRN PO HEARTBURN / GAS; Start 06/24/20 at 11:45 Clonidine HCl (Catapres) 0.1 mg PRN Q6HRS PRN PO SBP>160 OR DBP>90; Start 06/24/20 at 11:45 Docusate Sodium (Colace) 100 mg PRN BID PRN PO HARD STOOLS; Start 06/24/20 at 11:45 Albuterol Sulfate (Ventolin Neb Soln) 2.5 mg PRN Q4HRS PRN NEB SHORTNESS OF BREATH; Start 06/24/20 at 11:45 Guaifenesin (Robitussin) 200 mg PRN Q4HRS PRN PO COUGH; Start 06/24/20 at 11:45 Lorazepam (Ativan) 0.5 mg PRN Q4HRS PRN PO ANXIETY / AGITATION; Start 06/24/20 at 11:45 Enoxaparin Sodium (Lovenox 40mg Syringe) 40 mg Q24H SQ ; Start 06/24/20 at 12:00 Piperacillin Sod/ Tazobactam Sod (Zosyn Per Pharmacy) 1 each PRN DAILY PRN MC SEE COMMENTS; Start 06/24/20 at 12:00 Vancomycin HCl (Vanco Per Pharmacy) 1 each PRN DAILY PRN MC SEE COMMENTS; Start 06/24/20 at 12:00; Stop 06/24/20 at 12:49; Status DC Hydromorphone HCl (Dilaudid) 0.5 mg PRN Q3HRS PRN IVP SEVERE PAIN 7-10; Start 06/24/20 at 12:00 Insulin Human Lispro (HumaLOG) 0-5 UNITS TIDWMEALS SQ Last administered on 06/24/20at 17:48; Start 06/24/20 at 12:00 Dextrose (Dextrose 50%-Water Syringe) 12.5 gm PRN Q15MIN PRN IV SEE COMMENTS; Start 06/24/20 at 12:00 Piperacillin Sod/ Tazobactam Sod 3.375 gm/Sodium Chloride 50 ml @ 100 mls/hr Q6HRS IV Last administered on 06/25/20at 05:57; Start 06/24/20 at 18:00 Diphenhydramine HCl (Benadryl) 25 mg 1X ONCE IVP Last administered on 06/24/20at 12:53; Start 06/24/20 at 13:00; Stop 06/24/20 at 13:01; Status DC Diphenhydramine HCl (Benadryl) 50 mg STK-MED ONCE .ROUTE ; Start 06/24/20 at 12:50; Stop 06/24/20 at 12:50; Status DC Insulin Human Lispro (HumaLOG VIAL for OP,RR ONLY) 0-10 units PRN Q1HR PRN SQ PER PROTOCOL Last administered on 06/24/20at 14:33; Start 06/24/20 at 13:30; Stop 06/25/20 at 13:29 Bupivacaine HCl/ Epinephrine Bitart (Sensorcain-Epi 0.5% Kit) 30 ml STK-MED ONCE .ROUTE ; Start 06/24/20 at 13:28; Stop 06/24/20 at 13:29; Status DC Fentanyl Citrate (Fentanyl 2ml Vial) 25 mcg PRN Q5MIN PRN IVP MILD PAIN 1-3; Start 06/24/20 at 13:45; Stop 06/25/20 at 13:44 Fentanyl Citrate (Fentanyl 2ml Vial) 50 mcg PRN Q5MIN PRN IVP MODERATE PAIN 4- 6; Start 06/24/20 at 13:45; Stop 06/25/20 at 13:44 Morphine Sulfate (Morphine Sulfate) 1 mg PRN Q10MIN PRN IVP SEVERE PAIN 7-10; Start 06/24/20 at 13:45; Stop 06/25/20 at 13:44 Ringer's Solution 1,000 ml @ 30 mls/hr Q24H IV Last administered on 06/24/20at 13:45; Start 06/24/20 at 13:45; Stop 06/25/20 at 01:44; Status DC Hydromorphone HCl (Dilaudid) 0.5 mg PRN Q10MIN PRN IVP SEVERE PAIN 7-10, 2nd CHOICE; Start 06/24/20 at 13:45; Stop 06/25/20 at 13:44 Prochlorperazine Edisylate (Compazine) 5 mg PACU PRN PRN IVP NAUSEA, MRX1; Start 06/24/20 at 13:45; Stop 06/25/20 at 13:44 Fentanyl Citrate (Fentanyl 2ml Vial) 100 mcg STK-MED ONCE .ROUTE ; Start 06/24/20 at 13:45; Stop 06/24/20 at 13:45; Status DC Vancomycin HCl 1.5 gm/Sodium Chloride 500 ml @ 250 mls/hr Q12H IV ; Start 06/25/20 at 00:00; Stop 06/24/20 at 13:48; Status DC Phenylephrine HCl (PHENYLEPHRINE in 0.9% NACL PF) 1 mg STK-MED ONCE IV ; Start 06/24/20 at 13:58; Stop 06/24/20 at 13:58; Status DC Propofol (Diprivan) 200 mg STK-MED ONCE IV ; Start 06/24/20 at 14:00; Stop 06/24/20 at 14:00; Status DC Lidocaine HCl (Lidocaine Pf 2% Vial) 5 ml STK-MED ONCE .ROUTE ; Start 06/24/20 at 14:00; Stop 06/24/20 at 14:00; Status DC Dexamethasone Sodium Phosphate (Decadron) 4 mg STK-MED ONCE .ROUTE ; Start 06/24/20 at 14:00; Stop 06/24/20 at 14:00; Status DC Ondansetron HCl (Zofran) 4 mg STK-MED ONCE .ROUTE ; Start 06/24/20 at 14:00; Stop 06/24/20 at 14:01; Status DC Ketorolac Tromethamine (Toradol 30mg Vial) 30 mg STK-MED ONCE .ROUTE ; Start 06/24/20 at 14:01; Stop 06/24/20 at 14:01; Status DC Sevoflurane (Ultane) 30 ml STK-MED ONCE IH ; Start 06/24/20 at 14:01; Stop 06/24/20 at 14:01; Status DC Propofol (Diprivan) 200 mg STK-MED ONCE IV ; Start 06/24/20 at 14:06; Stop 06/24/20 at 14:06; Status DC Acetaminophen/ Hydrocodone Bitart (Lortab 5/325) 1 tab PRN Q4HRS PRN PO MODERATE-SEVERE PAIN; Start 06/24/20 at 14:30 Naloxone HCl (Narcan) 0.4 mg PRN Q2MIN PRN IV SEE INSTRUCTIONS; Start 06/24/20 at 14:30 Sodium Chloride 1,000 ml @ 25 mls/hr Q24H IV ; Start 06/24/20 at 14:30 Docusate Sodium (Colace) 100 mg BID PO ; Start 06/24/20 at 21:00 Ondansetron HCl (Zofran) 4 mg PRN Q6HRS PRN IVP NAUESA, 1ST CHOICE; Start 06/24/20 at 14:30 Vitals/I & O Vital Sign - Last 24 Hours 06/24/20 06/24/20 06/24/20 06/24/20 08:34 09:04 09:35 10:51 Pulse 85 80 82 89 Resp 18 20 20 20 B/P (MAP) 117/67 (84) 104/59 (74) 105/61 (76) 111/64 (80) Pulse Ox 94 96 94 O2 Delivery Room Air Room Air Room Air Room Air 06/24/20 06/24/20 06/24/20 06/24/20 12:11 13:31 14:18 14:18 Temp 100 98.4 100.0 98.4 Pulse 98 90 83 Resp 18 16 15 B/P (MAP) 111/80 (90) 107/70 92/51 Pulse Ox 94 94 99 O2 Delivery Room Air Room Air Mask Simple Mask O2 Flow Rate 10 10 06/24/20 06/24/20 06/24/20 06/24/20 14:35 14:48 15:05 15:15 Temp 98.4 98.4 98.4 98.4 98.4 98.4 Pulse 87 89 86 85 Resp 15 15 15 18 B/P (MAP) 87/57 92/63 94/64 109/62 (78) Pulse Ox 99 96 97 97 O2 Delivery Simple Mask Room Air Nasal Cannula Nasal Cannula O2 Flow Rate 10 2 2.0 06/24/20 06/24/20 06/24/20 06/24/20 15:24 15:30 15:45 16:00 Pulse 79 73 78 Resp 18 18 18 B/P (MAP) 88/54 (65) 98/61 (73) 96/60 (72) Pulse Ox 96 96 97 O2 Delivery Nasal Cannula Nasal Cannula Nasal Cannula Nasal Cannula O2 Flow Rate 2.0 2.0 2.0 2.0 06/24/20 06/24/20 06/24/20 06/24/20 16:30 17:00 17:22 18:00 Pulse 72 57 78 Resp 18 18 18 18 B/P (MAP) 87/60 (69) 97/60 (72) 96/60 (72) 87/50 (62) Pulse Ox 97 95 97 O2 Delivery Nasal Cannula Nasal Cannula Nasal Cannula Nasal Cannula O2 Flow Rate 2.0 2.0 2.0 2.0 06/24/20 06/24/20 06/25/20 19:50 23:00 03:00 Temp 98.4 98.4 Resp 18 B/P (MAP) 118/68 (85) Pulse Ox 94 O2 Delivery Room Air Nasal Cannula Room Air O2 Flow Rate 2.0 Intake and Output 06/24/20 06/24/20 06/25/20 15:00 23:00 07:00 Output Total 50 ml 0 ml Balance -50 ml 0 ml Justicifation of Admission Dx: Justifications for Admission: Justification of Admission Dx: Yes Cellulitis: Cellulitis Comments: ABSCESS WALTER NG MD Jun 25, 2020 08:04
[2020-06-25] MEDS: DOCUSATE SODIUM 100 MG CAPSULE. PO SCH ×2 (08:10→21:17)
[2020-06-25] MEDS: HYDROcodone/APAP 5/325MG 1 TAB TABLET PO PRN ×2 (08:10→14:56)
[2020-06-25] MEDS: INSULIN LISPRO 300 UNITS/3 ML VIAL. SQ SCH ×3 (08:29→18:04)
--- NOTE | 2020-06-25 09:26 | NUR ---
SW following. Discussed with RN, pt from home with family, room air, clear liquid diet, COVID-19 negative. Pt had an I&D on 06/24/20. On PO pain meds. RN anticipates pt could discharge home today with self care. Med Assist following for self pay status. SW will continue to follow.
--- NOTE | 2020-06-25 09:45 | CONS ---
DATE OF CONSULTATION: 06/25/2020 REQUESTING PHYSICIAN: Dr. North Gordon. REASON FOR CONSULTATION: Gluteal abscess. HISTORY OF PRESENT ILLNESS: This is a 44-year-old gentleman who was admitted after having gluteal pain. Since about 4 or 5 days ago, it started with pain, it got worse and then started draining. The patient came in, the patient was seen. CAT scan showed 2 abscesses. The patient was taken to the OR by Dr. Greene and had right perirectal abscess with no fistula and I and D of both the abscess was done. The patient has Romeo in place. The patient is doing fine. The patient received Zosyn and when he had a vancomycin, he had a rash and itching, which has completely cleared, but vancomycin has been stopped. The patient is doing really well. Denies any nausea, vomiting, diarrhea, chest pain, shortness of breath. Pain has improved significantly. PAST MEDICAL HISTORY: Positive for diabetes. SOCIAL HISTORY: Negative for smoking, alcohol or illicit drug use. ALLERGIES: No known drug allergies. CURRENT MEDICATIONS: Reviewed. REVIEW OF SYSTEMS: As per HPI, all other systems reviewed, are negative. PHYSICAL EXAMINATION: GENERAL: Alert, oriented gentleman, not in distress. VITAL SIGNS: Stable, afebrile. HEENT: NAD. NECK: Supple, no JVP, no lymphadenopathy. LUNGS: Clear. HEART: S1, S2 regular. ABDOMEN: Benign. EXTREMITIES: No edema, cyanosis. SKIN: Unremarkable. Perirectal area seen. Romeo in place. There is no induration. There is no erythema. NEUROLOGIC: The patient is alert, awake and appropriate. No focal neurologic deficit. LABORATORY DATA: White count is normal. BUN and creatinine are normal. His culture is so far negative. Many gram-negative seen. IMPRESSION: 1. Perirectal abscess, status post incision and drainage. 2. Diabetes. 3. Vancomycin, red man syndrome. RECOMMENDATIONS: The patient continue Zosyn, can be switched over to p.o. Augmentin. For possible discharge, that is planned if that is okay from surgery. The patient will have followup with surgery. Thank you very much, Dr. Gordon, for giving me the opportunity to participate in this patient's care. ELIO R. MELARA, MD DR: HOLLEY/august JOB#: [id number] / [id number]
[2020-06-25 11:00] VITALS: BP 142/60
[2020-06-25] MEDS: ENOXAPARIN 40 MG/0.4 ML SYRINGE. SQ SCH (12:00)
--- NOTE | 2020-06-25 13:03 | PDOC3 ---
Discharge Summary Date of Admission: Jun 24, 2020 Date of Discharge: Jun 25, 2020 Follow-Up: 3-5 days Admitting Diagnosis comment: complications none consults surgery procedure 06-24 d/c condition good Chief Complaint Chief Complaint ASSESSMENT: 1. Acute subcutaneous abscess involving the gluteal cleft on the right. 2. Fat-containing umbilical hernia. 3. Diabetes. 4. Perianal tract will likely require incision and drainage. c/w kavitha-rectal abscess PLAN: Admit. a1c , IV fluid, sliding scale insulin. ID consult, Surgery consult. Blood cultures, screening for COVID. IV Zosyn and vancomycin, pending cultures. DVT prophylaxis.sq lovenox Anticipate length of stay greater than 48 hours due to the severity of abscess and diabetes as a complicating factor. Time spent with the patient exam, chart review was 27 minutes, greater than 50% of time was spent with the patient exam, chart review and patient care coordination. D/W RN IN ROOM For possible discharge 06-25 , if okay from surgery. The patient will have followup with surgery History of Present Illness History of Present Illness PATIENT: JANETTE SANTOS ACCOUNT: [id number] : 1975 LOC: [address] [place] [address] AGE: 44 SEX: M STATUS: ADM IN LOCATION: [address] [place] [address] ADMIT DATE: 06/24/2020 CHIEF COMPLAINT: Perirectal pain with discomfort, drainage and bleeding. HISTORY OF PRESENT ILLNESS: This 44-year-old male presented with an abscess to the ER in the right buttocks, which began 5 days prior to admission. Pain has become progressively worse over the weekend. He cannot ambulate and is diabetic. He is accompanied by his son who speeks danish well , who notes no fever or vomiting, just severe pain. ct was concerning for kavitha-rectal abscess PAST MEDICAL HISTORY: Significant for diabetes. FAMILY HISTORY: Hypertension and diabetes. SOCIAL HISTORY: No tobacco, alcohol or drug use. 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 CURRENT MEDICATIONS: Please see JUN. REVIEW OF SYSTEMS: Denies chills, fever, malaise. Denies decreased vision, headaches. Eyes insect sensitivity. Nasal congestion. Denies chest pain, shortness of breath, abdominal pain, diarrhea. Does have some rectal bleeding. No dysuria or incontinence. No hematuria. No urinary hesitancy. Denies bladder or bowel dysfunction. Denies eczema or hair changes. Complains mainly of perirectal pain and severe pain with ambulation and at rest. Vitals Vitals Vital Signs Date Time Temp Pulse Resp B/P (MAP) Pulse Ox O2 Delivery O2 Flow Rate FiO2 06/25/20 03:00 118/68 (85) 94 Room Air 06/24/20 23:00 98.4 18 2.0 98.4 06/24/20 17:22 78 Physical Exam General: Alert, Oriented X3, Cooperative, No acute distress, severe distress Heart: Regular rate, Normal S1, Normal S2 Lungs: Clear Abdomen: Normal bowel sounds, Soft, No tenderness Extremities: No cyanosis, No edema, Normal pulses Skin: Other (right gluteal area with significant tenderness on exam, difficult to fully examine due to pain, there is small amount of drainage, however still with induration, fluctunace ) Labs LABS Signed PATIENT: JANETTE SANTOS ACCOUNT: [id number] : 1975 LOCATION: ER AGE: 44 SEX: M EXAM STATUS: REG ER ORD. PHYSICIAN: KIANA VINCENT DO REASON: abscess butt, r/o perirectal abscess PROCEDURE: CT PELVIS W/CONTRAST Exam: CT pelvis with intravenous contrast Indication: Abscess in gluteal region. Evaluate for perirectal abscess. Comparison: None Technique: Helical CT imaging performed of the pelvis after the intravenous administration of 75 mL Omnipaque 300 intravenous contrast. Sagittal and coronal reformats were obtained. One or more of the following individualized dose reduction techniques were utilized for this examination: 1. Automated exposure control 2. Adjustment of the mA and/or kV according to patient size 3. Use of iterative reconstruction technique. Findings: There is a subcutaneous abscess along the gluteal cleft on the right measuring approximately 4.0 x 1.6 x 2.3 cm (CC by transverse by AP). This has a sinus tract extending toward the anus where there is another collection measuring approximately 1.5 x 0.7 x 2.0 cm. No perirectal abscess. Small fat-containing umbilical hernia. Visualized bowel is unremarkable. Prostate gland is normal. Probable bladder diverticulum on the left. No lymphadenopathy. Impression: Subcutaneous abscess along the right gluteal cleft extending to the perianal region. No perirectal abscess. Electronically signed by: Melanie Esparza MD (06/24/2020 9:04 AM) [id number] FINAL DIAGNOSIS Problems Medical Problems: (1) Gluteal abscess Status: Acute (2) Hyperglycemia Status: Acute Brief Hospital Course Mr. Santos is a 44 old [sex] who presented with [ kavitha-rectal abscess] CONDITION AT DISCHARGE: Improved Discharge Medications Current Medications Morphine Sulfate (Morphine Sulfate) 4 mg 1X ONCE IM Last administered on 06/24/20at 07:32; Start 06/24/20 at 07:15; Stop 06/24/20 at 07:24; Status DC Iohexol (Omnipaque 350 Mg/ml) 75 ml 1X ONCE IV Last administered on 06/24/20at 08:36; Start 06/24/20 at 08:15; Stop 06/24/20 at 08:16; Status DC Info (CONTRAST GIVEN -- Rx MONITORING) 1 each PRN DAILY PRN MC SEE COMMENTS; Start 06/24/20 at 08:30; Stop 06/26/20 at 08:29 Lidocaine HCl (Xylocaine-Mpf 1% 2ml Vial) 10 ml 1X ONCE SQ ; Start 06/24/20 at 09:30; Stop 06/24/20 at 09:31; Status DC Vancomycin HCl 1.25 gm/Sodium Chloride 250 ml @ 166.667 mls/hr 1X ONCE IV ; Start 06/24/20 at 10:30; Stop 06/24/20 at 11:59; Status UNV Piperacillin Sod/ Tazobactam Sod 3.375 gm/Sodium Chloride 50 ml @ 100 mls/hr 1X ONCE IV Last administered on 06/24/20at 10:51; Start 06/24/20 at 10:30; Stop 06/24/20 at 10:59; Status DC Vancomycin HCl 2 gm/Sodium Chloride 500 ml @ 250 mls/hr 1X ONCE IV Last administered on 06/24/20at 12:08; Start 06/24/20 at 10:30; Stop 06/24/20 at 12:49; Status DC Morphine Sulfate (Morphine Sulfate) 4 mg PRN Q4HRS PRN IV PAIN; Start 06/24/20 at 10:45; Stop 06/25/20 at 10:12; Status DC Sodium Chloride (Normal Saline Flush) 3 ml QSHIFT PRN IV AFTER MEDS AND BLOOD DRAWS; Start 06/24/20 at 11:45 Sodium Chloride 1,000 ml @ 100 mls/hr Q10H IV Last administered on 06/25/20at 05:57; Start 06/24/20 at 11:45 Ondansetron HCl (Zofran) 4 mg PRN Q4HRS PRN IV NAUSEA/VOMITING; Start 06/24/20 at 11:45; Stop 06/25/20 at 10:06; Status DC Zolpidem Tartrate (Ambien) 5 mg PRN QHS PRN PO INSOMNIA; Start 06/24/20 at 11:45 Acetaminophen (Tylenol) 650 mg PRN Q4HRS PRN PO TEMP OVER 100.4F OR MILD PAIN; Start 06/24/20 at 11:45 Al Hydroxide/Mg Hydroxide (Mylanta Plus Xs) 30 ml PRN DAILY PRN PO HEARTBURN / GAS; Start 06/24/20 at 11:45 Clonidine HCl (Catapres) 0.1 mg PRN Q6HRS PRN PO SBP>160 OR DBP>90; Start 06/24/20 at 11:45 Docusate Sodium (Colace) 100 mg PRN BID PRN PO HARD STOOLS; Start 06/24/20 at 11:45 Albuterol Sulfate (Ventolin Neb Soln) 2.5 mg PRN Q4HRS PRN NEB SHORTNESS OF BREATH; Start 06/24/20 at 11:45 Guaifenesin (Robitussin) 200 mg PRN Q4HRS PRN PO COUGH; Start 06/24/20 at 11:45 Lorazepam (Ativan) 0.5 mg PRN Q4HRS PRN PO ANXIETY / AGITATION; Start 06/24/20 at 11:45 Enoxaparin Sodium (Lovenox 40mg Syringe) 40 mg Q24H SQ ; Start 06/24/20 at 12:00 Piperacillin Sod/ Tazobactam Sod (Zosyn Per Pharmacy) 1 each PRN DAILY PRN MC SEE COMMENTS; Start 06/24/20 at 12:00 Vancomycin HCl (Vanco Per Pharmacy) 1 each PRN DAILY PRN MC SEE COMMENTS; Start 06/24/20 at 12:00; Stop 06/24/20 at 12:49; Status DC Hydromorphone HCl (Dilaudid) 0.5 mg PRN Q3HRS PRN IVP SEVERE PAIN 7-10; Start 06/24/20 at 12:00 Insulin Human Lispro (HumaLOG) 0-5 UNITS TIDWMEALS SQ Last administered on 06/25/20at 08:29; Start 06/24/20 at 12:00 Dextrose (Dextrose 50%-Water Syringe) 12.5 gm PRN Q15MIN PRN IV SEE COMMENTS; Start 06/24/20 at 12:00 Piperacillin Sod/ Tazobactam Sod 3.375 gm/Sodium Chloride 50 ml @ 100 mls/hr Q6HRS IV Last administered on 06/25/20at 05:57; Start 06/24/20 at 18:00 Diphenhydramine HCl (Benadryl) 25 mg 1X ONCE IVP Last administered on 06/24/20at 12:53; Start 06/24/20 at 13:00; Stop 06/24/20 at 13:01; Status DC Diphenhydramine HCl (Benadryl) 50 mg STK-MED ONCE .ROUTE ; Start 06/24/20 at 12:50; Stop 06/24/20 at 12:50; Status DC Insulin Human Lispro (HumaLOG VIAL for OP,RR ONLY) 0-10 units PRN Q1HR PRN SQ PER PROTOCOL Last administered on 06/24/20at 14:33; Start 06/24/20 at 13:30; Stop 06/25/20 at 10:12; Status DC Bupivacaine HCl/ Epinephrine Bitart (Sensorcain-Epi 0.5% Kit) 30 ml STK-MED ONCE .ROUTE ; Start 06/24/20 at 13:28; Stop 06/24/20 at 13:29; Status DC Fentanyl Citrate (Fentanyl 2ml Vial) 25 mcg PRN Q5MIN PRN IVP MILD PAIN 1-3; Start 06/24/20 at 13:45; Stop 06/25/20 at 13:44 Fentanyl Citrate (Fentanyl 2ml Vial) 50 mcg PRN Q5MIN PRN IVP MODERATE PAIN 4- 6; Start 06/24/20 at 13:45; Stop 06/25/20 at 13:44 Morphine Sulfate (Morphine Sulfate) 1 mg PRN Q10MIN PRN IVP SEVERE PAIN 7-10; Start 06/24/20 at 13:45; Stop 06/25/20 at 13:44 Ringer's Solution 1,000 ml @ 30 mls/hr Q24H IV Last administered on 06/24/20at 13:45; Start 06/24/20 at 13:45; Stop 06/25/20 at 01:44; Status DC Hydromorphone HCl (Dilaudid) 0.5 mg PRN Q10MIN PRN IVP SEVERE PAIN 7-10, 2nd CHOICE; Start 06/24/20 at 13:45; Stop 06/25/20 at 13:44 Prochlorperazine Edisylate (Compazine) 5 mg PACU PRN PRN IVP NAUSEA, MRX1; Start 06/24/20 at 13:45; Stop 06/25/20 at 13:44 Fentanyl Citrate (Fentanyl 2ml Vial) 100 mcg STK-MED ONCE .ROUTE ; Start 06/24/20 at 13:45; Stop 06/24/20 at 13:45; Status DC Vancomycin HCl 1.5 gm/Sodium Chloride 500 ml @ 250 mls/hr Q12H IV ; Start 06/25/20 at 00:00; Stop 06/24/20 at 13:48; Status DC Phenylephrine HCl (PHENYLEPHRINE in 0.9% NACL PF) 1 mg STK-MED ONCE IV ; Start 06/24/20 at 13:58; Stop 06/24/20 at 13:58; Status DC Propofol (Diprivan) 200 mg STK-MED ONCE IV ; Start 06/24/20 at 14:00; Stop 06/24/20 at 14:00; Status DC Lidocaine HCl (Lidocaine Pf 2% Vial) 5 ml STK-MED ONCE .ROUTE ; Start 06/24/20 at 14:00; Stop 06/24/20 at 14:00; Status DC Dexamethasone Sodium Phosphate (Decadron) 4 mg STK-MED ONCE .ROUTE ; Start 06/24/20 at 14:00; Stop 06/24/20 at 14:00; Status DC Ondansetron HCl (Zofran) 4 mg STK-MED ONCE .ROUTE ; Start 06/24/20 at 14:00; Stop 06/24/20 at 14:01; Status DC Ketorolac Tromethamine (Toradol 30mg Vial) 30 mg STK-MED ONCE .ROUTE ; Start 06/24/20 at 14:01; Stop 06/24/20 at 14:01; Status DC Sevoflurane (Ultane) 30 ml STK-MED ONCE IH ; Start 06/24/20 at 14:01; Stop 06/24/20 at 14:01; Status DC Propofol (Diprivan) 200 mg STK-MED ONCE IV ; Start 06/24/20 at 14:06; Stop 06/24/20 at 14:06; Status DC Acetaminophen/ Hydrocodone Bitart (Lortab 5/325) 1 tab PRN Q4HRS PRN PO MODE RATE-SEVERE PAIN Last administered on 06/25/20at 08:10; Start 06/24/20 at 14:30 Naloxone HCl (Narcan) 0.4 mg PRN Q2MIN PRN IV SEE INSTRUCTIONS; Start 06/24/20 at 14:30 Sodium Chloride 1,000 ml @ 25 mls/hr Q24H IV ; Start 06/24/20 at 14:30 Docusate Sodium (Colace) 100 mg BID PO Last administered on 06/25/20at 08:10; Start 06/24/20 at 21:00 Ondansetron HCl (Zofran) 4 mg PRN Q6HRS PRN IVP NAUESA, 1ST CHOICE; Start 06/24/20 at 14:30 Insulin Glargine (Lantus Syringe) 8 unit QHS SQ ; Start 06/25/20 at 21:00 Lactobacillus Rhamnosus (Culturelle) 1 cap BID PO ; Start 06/25/20 at 21:00 Vital Signs Vital Signs Date Time Temp Pulse Resp B/P (MAP) Pulse Ox O2 Delivery O2 Flow Rate FiO2 06/25/20 11:00 97.8 70 18 142/60 (87) 96 Room Air 97.8 06/24/20 23:00 2.0 Labs Laboratory Tests Test 06/24/20 07:20 06/24/20 11:13 06/24/20 11:25 06/24/20 13:05 White Blood Count 8.8 x10^3/uL (4.0-11.0) Red Blood Count 5.07 x10^6/uL (4.30-5.70) Hemoglobin 14.7 g/dL (13.0-17.5) Hematocrit 43.2 % (39.0-53.0) Mean Corpuscular Volume 85 fL (79-100) Mean Corpuscular Hemoglobin 29 pg (25-35) Mean Corpuscular Hemoglobin Concent 34 g/dL (31-37) Red Cell Distribution Width 13.6 % (11.5-14.5) Platelet Count 209 x10^3/uL (140-400) Neutrophils (%) (Auto) 70 % (31-73) Lymphocytes (%) (Auto) 21 % (24-48) Monocytes (%) (Auto) 9 % (0-9) Eosinophils (%) (Auto) 1 % (0-3) Basophils (%) (Auto) 0 % (0-3) Neutrophils # (Auto) 6.1 x10^3/uL (1.8-7.7) Lymphocytes # (Auto) 1.8 x10^3/uL (1.0-4.8) Monocytes # (Auto) 0.7 x10^3/uL (0.0-1.1) Eosinophils # (Auto) 0.1 x10^3/uL (0.0-0.7) Basophils # (Auto) 0.0 x10^3/uL (0.0-0.2) Sodium Level 137 mmol/L (136-145) Potassium Level 4.1 mmol/L (3.5-5.1) Chloride Level 103 mmol/L (98-107) Carbon Dioxide Level 25 mmol/L (21-32) Anion Gap 9 (6-14) Blood Urea Nitrogen 12 mg/dL (8-26) Creatinine 1.0 mg/dL (0.7-1.3) Estimated GFR (Cockcroft-Gault) 80.8 BUN/Creatinine Ratio 12 (6-20) Glucose Level 234 mg/dL (70-99) Hemoglobin A1c 9.1 % (4.8-5.6) Calcium Level 8.7 mg/dL (8.5-10.1) Total Bilirubin 0.2 mg/dL (0.2-1.0) Aspartate Amino Transf (AST/SGOT) 11 U/L (15-37) Alanine Aminotransferase (ALT/SGPT) 30 U/L (16-63) Alkaline Phosphatase 74 U/L (46-116) Total Protein 7.6 g/dL (6.4-8.2) Albumin 2.7 g/dL (3.4-5.0) Albumin/Globulin Ratio 0.6 (1.0-1.7) Coronavirus (PCR) Not detected (Not Detected) SARS-CoV-2 Antigen (Rapid) Negative (NEGATIVE) Lactic Acid Level 1.5 mmol/L (0.4-2.0) Glucose (Fingerstick) 204 mg/dL (70-99) Test 06/24/20 14:31 06/24/20 16:03 06/24/20 20:56 06/25/20 06:30 Glucose (Fingerstick) 283 mg/dL (70-99) 221 mg/dL (70-99) 306 mg/dL (70-99) White Blood Count 8.9 x10^3/uL (4.0-11.0) Red Blood Count 4.73 x10^6/uL (4.30-5.70) Hemoglobin 13.7 g/dL (13.0-17.5) Hematocrit 40.3 % (39.0-53.0) Mean Corpuscular Volume 85 fL (79-100) Mean Corpuscular Hemoglobin 29 pg (25-35) Mean Corpuscular Hemoglobin Concent 34 g/dL (31-37) Red Cell Distribution Width 13.0 % (11.5-14.5) Platelet Count 246 x10^3/uL (140-400) Neutrophils (%) (Auto) 76 % (31-73) Lymphocytes (%) (Auto) 18 % (24-48) Monocytes (%) (Auto) 6 % (0-9) Eosinophils (%) (Auto) 0 % (0-3) Basophils (%) (Auto) 0 % (0-3) Neutrophils # (Auto) 6.8 x10^3/uL (1.8-7.7) Lymphocytes # (Auto) 1.6 x10^3/uL (1.0-4.8) Monocytes # (Auto) 0.6 x10^3/uL (0.0-1.1) Eosinophils # (Auto) 0.0 x10^3/uL (0.0-0.7) Basophils # (Auto) 0.0 x10^3/uL (0.0-0.2) Sodium Level 138 mmol/L (136-145) Potassium Level 3.7 mmol/L (3.5-5.1) Chloride Level 103 mmol/L (98-107) Carbon Dioxide Level 27 mmol/L (21-32) Anion Gap 8 (6-14) Blood Urea Nitrogen 11 mg/dL (8-26) Creatinine 1.0 mg/dL (0.7-1.3) Estimated GFR (Cockcroft-Gault) 80.8 BUN/Creatinine Ratio 11 (6-20) Glucose Level 203 mg/dL (70-99) Calcium Level 8.4 mg/dL (8.5-10.1) Total Bilirubin 0.4 mg/dL (0.2-1.0) Aspartate Amino Transf (AST/SGOT) 24 U/L (15-37) Alanine Aminotransferase (ALT/SGPT) 78 U/L (16-63) Alkaline Phosphatase 124 U/L (46-116) Total Protein 7.0 g/dL (6.4-8.2) Albumin 2.4 g/dL (3.4-5.0) Albumin/Globulin Ratio 0.5 (1.0-1.7) Test 06/25/20 07:57 06/25/20 12:05 Glucose (Fingerstick) 205 mg/dL (70-99) 208 mg/dL (70-99) Laboratory Tests Test 06/24/20 13:05 06/24/20 14:31 06/24/20 16:03 06/24/20 20:56 Glucose (Fingerstick) 204 mg/dL (70-99) 283 mg/dL (70-99) 221 mg/dL (70-99) 306 mg/dL (70-99) Test 06/25/20 06:30 06/25/20 07:57 06/25/20 12:05 White Blood Count 8.9 x10^3/uL (4.0-11.0) Red Blood Count 4.73 x10^6/uL (4.30-5.70) Hemoglobin 13.7 g/dL (13.0-17.5) Hematocrit 40.3 % (39.0-53.0) Mean Corpuscular Volume 85 fL (79-100) Mean Corpuscular Hemoglobin 29 pg (25-35) Mean Corpuscular Hemoglobin Concent 34 g/dL (31-37) Red Cell Distribution Width 13.0 % (11.5-14.5) Platelet Count 246 x10^3/uL (140-400) Neutrophils (%) (Auto) 76 % (31-73) Lymphocytes (%) (Auto) 18 % (24-48) Monocytes (%) (Auto) 6 % (0-9) Eosinophils (%) (Auto) 0 % (0-3) Basophils (%) (Auto) 0 % (0-3) Neutrophils # (Auto) 6.8 x10^3/uL (1.8-7.7) Lymphocytes # (Auto) 1.6 x10^3/uL (1.0-4.8) Monocytes # (Auto) 0.6 x10^3/uL (0.0-1.1) Eosinophils # (Auto) 0.0 x10^3/uL (0.0-0.7) Basophils # (Auto) 0.0 x10^3/uL (0.0-0.2) Sodium Level 138 mmol/L (136-145) Potassium Level 3.7 mmol/L (3.5-5.1) Chloride Level 103 mmol/L (98-107) Carbon Dioxide Level 27 mmol/L (21-32) Anion Gap 8 (6-14) Blood Urea Nitrogen 11 mg/dL (8-26) Creatinine 1.0 mg/dL (0.7-1.3) Estimated GFR (Cockcroft-Gault) 80.8 BUN/Creatinine Ratio 11 (6-20) Glucose Level 203 mg/dL (70-99) Calcium Level 8.4 mg/dL (8.5-10.1) Total Bilirubin 0.4 mg/dL (0.2-1.0) Aspartate Amino Transf (AST/SGOT) 24 U/L (15-37) Alanine Aminotransferase (ALT/SGPT) 78 U/L (16-63) Alkaline Phosphatase 124 U/L (46-116) Total Protein 7.0 g/dL (6.4-8.2) Albumin 2.4 g/dL (3.4-5.0) Albumin/Globulin Ratio 0.5 (1.0-1.7) Glucose (Fingerstick) 205 mg/dL (70-99) 208 mg/dL (70-99) Allergies Allergies Coded Allergies Type Severity Reaction Last Updated Verified vancomycin Allergy Intermediate Rash 06/24/20 Yes Disposition/Orders: D/C to Home Justicifation of Admission Dx: Justifications for Admission: Justification of Admission Dx: Yes Cellulitis: Cellulitis WALTER NG MD Jun 25, 2020 13:03
[2020-06-25] MEDS ORDERED: LACT1CAP19 PO (13:06)
[2020-06-25] MEDS ORDERED: INSU100V8 SQ (13:06)
[2020-06-25] MEDS ORDERED: DOCU-153 PO (13:06)
[2020-06-25] MEDS ORDERED: ACET325T21 PO (13:06)
[2020-06-25] MEDS ORDERED: AMOX1TAB61 PO (13:07)
--- NOTE | 2020-06-25 13:08 | DISCH ---
DISCHARGE INSTRUCTIONS Condition on Discharge Condition on Discharge: Stable Activity After Discharge Activity Instructions for Disc: Activity as tolerated Lifting Instructions after Dis: No heavy lifting, No pulling or pushing Driving Instructions after Dis: Do not drive Diet after Discharge Diet after Discharge: Diabetic No Calorie Level Liquid Texture: Thin Liquid Checks after Discharge Checks after discharge: Check blood press - daily Contacting the [facility] after DC Call your doctor for: If your condition worsens Follow-Up Follow up with: surgery this week , pcp in 2 weeks Treatment/Equipment after DC Adaptive Equipment Issued: None WALTER NG MD Jun 25, 2020 13:08
--- NOTE | 2020-06-25 13:15 | PDOC ---
SURGICAL PROGRESS NOTE DATE: 06/25/20 TIME: 13:14 Subjective feels better less pain Vital Signs Vital Signs Date Time Temp Pulse Resp B/P (MAP) Pulse Ox O2 Delivery O2 Flow Rate FiO2 06/25/20 11:00 97.8 70 18 142/60 (87) 96 Room Air 97.8 06/24/20 23:00 2.0 I&O Intake and Output 06/25/20 07:00 Output Total 50 ml Balance -50 ml Output Urine Total 0 ml Estimated Blood Loss 50 ml # Voids 4 General: Alert, Oriented X3, Cooperative Extremities: Other (wound with drain and packing) Labs Laboratory Tests Test 06/24/20 07:20 06/24/20 11:13 06/24/20 11:25 06/24/20 13:05 White Blood Count 8.8 x10^3/uL (4.0-11.0) Red Blood Count 5.07 x10^6/uL (4.30-5.70) Hemoglobin 14.7 g/dL (13.0-17.5) Hematocrit 43.2 % (39.0-53.0) Mean Corpuscular Volume 85 fL (79-100) Mean Corpuscular Hemoglobin 29 pg (25-35) Mean Corpuscular Hemoglobin Concent 34 g/dL (31-37) Red Cell Distribution Width 13.6 % (11.5-14.5) Platelet Count 209 x10^3/uL (140-400) Neutrophils (%) (Auto) 70 % (31-73) Lymphocytes (%) (Auto) 21 % (24-48) Monocytes (%) (Auto) 9 % (0-9) Eosinophils (%) (Auto) 1 % (0-3) Basophils (%) (Auto) 0 % (0-3) Neutrophils # (Auto) 6.1 x10^3/uL (1.8-7.7) Lymphocytes # (Auto) 1.8 x10^3/uL (1.0-4.8) Monocytes # (Auto) 0.7 x10^3/uL (0.0-1.1) Eosinophils # (Auto) 0.1 x10^3/uL (0.0-0.7) Basophils # (Auto) 0.0 x10^3/uL (0.0-0.2) Sodium Level 137 mmol/L (136-145) Potassium Level 4.1 mmol/L (3.5-5.1) Chloride Level 103 mmol/L (98-107) Carbon Dioxide Level 25 mmol/L (21-32) Anion Gap 9 (6-14) Blood Urea Nitrogen 12 mg/dL (8-26) Creatinine 1.0 mg/dL (0.7-1.3) Estimated GFR (Cockcroft-Gault) 80.8 BUN/Creatinine Ratio 12 (6-20) Glucose Level 234 mg/dL (70-99) Hemoglobin A1c 9.1 % (4.8-5.6) Calcium Level 8.7 mg/dL (8.5-10.1) Total Bilirubin 0.2 mg/dL (0.2-1.0) Aspartate Amino Transf (AST/SGOT) 11 U/L (15-37) Alanine Aminotransferase (ALT/SGPT) 30 U/L (16-63) Alkaline Phosphatase 74 U/L (46-116) Total Protein 7.6 g/dL (6.4-8.2) Albumin 2.7 g/dL (3.4-5.0) Albumin/Globulin Ratio 0.6 (1.0-1.7) Coronavirus (PCR) Not detected (Not Detected) SARS-CoV-2 Antigen (Rapid) Negative (NEGATIVE) Lactic Acid Level 1.5 mmol/L (0.4-2.0) Glucose (Fingerstick) 204 mg/dL (70-99) Test 06/24/20 14:31 06/24/20 16:03 06/24/20 20:56 06/25/20 06:30 Glucose (Fingerstick) 283 mg/dL (70-99) 221 mg/dL (70-99) 306 mg/dL (70-99) White Blood Count 8.9 x10^3/uL (4.0-11.0) Red Blood Count 4.73 x10^6/uL (4.30-5.70) Hemoglobin 13.7 g/dL (13.0-17.5) Hematocrit 40.3 % (39.0-53.0) Mean Corpuscular Volume 85 fL (79-100) Mean Corpuscular Hemoglobin 29 pg (25-35) Mean Corpuscular Hemoglobin Concent 34 g/dL (31-37) Red Cell Distribution Width 13.0 % (11.5-14.5) Platelet Count 246 x10^3/uL (140-400) Neutrophils (%) (Auto) 76 % (31-73) Lymphocytes (%) (Auto) 18 % (24-48) Monocytes (%) (Auto) 6 % (0-9) Eosinophils (%) (Auto) 0 % (0-3) Basophils (%) (Auto) 0 % (0-3) Neutrophils # (Auto) 6.8 x10^3/uL (1.8-7.7) Lymphocytes # (Auto) 1.6 x10^3/uL (1.0-4.8) Monocytes # (Auto) 0.6 x10^3/uL (0.0-1.1) Eosinophils # (Auto) 0.0 x10^3/uL (0.0-0.7) Basophils # (Auto) 0.0 x10^3/uL (0.0-0.2) Sodium Level 138 mmol/L (136-145) Potassium Level 3.7 mmol/L (3.5-5.1) Chloride Level 103 mmol/L (98-107) Carbon Dioxide Level 27 mmol/L (21-32) Anion Gap 8 (6-14) Blood Urea Nitrogen 11 mg/dL (8-26) Creatinine 1.0 mg/dL (0.7-1.3) Estimated GFR (Cockcroft-Gault) 80.8 BUN/Creatinine Ratio 11 (6-20) Glucose Level 203 mg/dL (70-99) Calcium Level 8.4 mg/dL (8.5-10.1) Total Bilirubin 0.4 mg/dL (0.2-1.0) Aspartate Amino Transf (AST/SGOT) 24 U/L (15-37) Alanine Aminotransferase (ALT/SGPT) 78 U/L (16-63) Alkaline Phosphatase 124 U/L (46-116) Total Protein 7.0 g/dL (6.4-8.2) Albumin 2.4 g/dL (3.4-5.0) Albumin/Globulin Ratio 0.5 (1.0-1.7) Test 06/25/20 07:57 06/25/20 12:05 Glucose (Fingerstick) 205 mg/dL (70-99) 208 mg/dL (70-99) Laboratory Tests Test 06/24/20 14:31 06/24/20 16:03 06/24/20 20:56 06/25/20 06:30 Glucose (Fingerstick) 283 mg/dL (70-99) 221 mg/dL (70-99) 306 mg/dL (70-99) White Blood Count 8.9 x10^3/uL (4.0-11.0) Red Blood Count 4.73 x10^6/uL (4.30-5.70) Hemoglobin 13.7 g/dL (13.0-17.5) Hematocrit 40.3 % (39.0-53.0) Mean Corpuscular Volume 85 fL (79-100) Mean Corpuscular Hemoglobin 29 pg (25-35) Mean Corpuscular Hemoglobin Concent 34 g/dL (31-37) Red Cell Distribution Width 13.0 % (11.5-14.5) Platelet Count 246 x10^3/uL (140-400) Neutrophils (%) (Auto) 76 % (31-73) Lymphocytes (%) (Auto) 18 % (24-48) Monocytes (%) (Auto) 6 % (0-9) Eosinophils (%) (Auto) 0 % (0-3) Basophils (%) (Auto) 0 % (0-3) Neutrophils # (Auto) 6.8 x10^3/uL (1.8-7.7) Lymphocytes # (Auto) 1.6 x10^3/uL (1.0-4.8) Monocytes # (Auto) 0.6 x10^3/uL (0.0-1.1) Eosinophils # (Auto) 0.0 x10^3/uL (0.0-0.7) Basophils # (Auto) 0.0 x10^3/uL (0.0-0.2) Sodium Level 138 mmol/L (136-145) Potassium Level 3.7 mmol/L (3.5-5.1) Chloride Level 103 mmol/L (98-107) Carbon Dioxide Level 27 mmol/L (21-32) Anion Gap 8 (6-14) Blood Urea Nitrogen 11 mg/dL (8-26) Creatinine 1.0 mg/dL (0.7-1.3) Estimated GFR (Cockcroft-Gault) 80.8 BUN/Creatinine Ratio 11 (6-20) Glucose Level 203 mg/dL (70-99) Calcium Level 8.4 mg/dL (8.5-10.1) Total Bilirubin 0.4 mg/dL (0.2-1.0) Aspartate Amino Transf (AST/SGOT) 24 U/L (15-37) Alanine Aminotransferase (ALT/SGPT) 78 U/L (16-63) Alkaline Phosphatase 124 U/L (46-116) Total Protein 7.0 g/dL (6.4-8.2) Albumin 2.4 g/dL (3.4-5.0) Albumin/Globulin Ratio 0.5 (1.0-1.7) Test 06/25/20 07:57 06/25/20 12:05 Glucose (Fingerstick) 205 mg/dL (70-99) 208 mg/dL (70-99) Problem List Problems Medical Problems: (1) Gluteal abscess Status: Acute (2) Hyperglycemia Status: Acute Assessment/Plan s/p I&D can remove packing, leave drain in place--FU next week for removal Justicifation of Admission Dx: Justifications for Admission: Justification of Admission Dx: Yes Cellulitis: Cellulitis KOSTA [employer]UM [employer] Jun 25, 2020 13:15
[2020-06-25 15:00] VITALS: BP 112/62
--- NOTE | 2020-06-25 16:15 | NUR ---
Wound/Ostomy Care Wound Type/Assessment: Pt seen per wound care consult. See wound assessment. Pt had an I&D yesterday with Dr. Greene of a kavitha-rectal abscess with pinrose drain placement. at bedside for teaching on wound care as she will be changing the dressing after discharge. Patient premedicated prior to dressing change. Wound cleansed, assessed, measured, and pictured. Treatment Recommendations/Plan: Recommendations for 1/4 inch Iodoform packing to wound and cover with ABD pad. Change daily. Pt will follow up with surgeon in one week. Dressing applied and patient did have significant amount of pain with dressing change. Pinrose drain in place. Education provided: Pt educated on dressing changes, PU prevention and taught how to change dressing for after discharge. Offloading surface/device: N/A Recommended Referrals/Tests: Follow up with surgeon as directed. Discharge Recommendations for dressings: continue current treatment. No other wounds noted. Bed lowered and call light in reach. Pt most likely to discharge today or tomorrow per RN.
--- NOTE | 2020-06-25 17:40 | NUR ---
Discharge cancelled d/t uncontrolled pain after removing packing.
[2020-06-25] MEDS ORDERED: HYDROcodone/APAP 10/325 1 TAB TABLET PO PRN (17:45)
--- NOTE | 2020-06-25 18:47 | NUR ---
Rocío removed from allergy list per ID
[2020-06-25 19:30] VITALS: BP 93/38
[2020-06-25] MEDS ORDERED: INSULIN GLARGINE SYRINGE. SQ SCH (21:00)
[2020-06-25] MEDS: AMOXICILLIN/K CLAV 875/125MG TABLET. PO SCH (21:17)
[2020-06-25] MEDS: LACTOBACILLUS RHAMNOSUS GG 1 CAPSULE. PO SCH (21:17)
[2020-06-25 23:44] VITALS: BP 97/53
[2020-06-26 03:25] VITALS: BP 86/45
[2020-06-26] MEDS: IV NORMAL SALINE 1000ML BAG 1,000 ML IV SCH (03:57)
[2020-06-26 07:26] VITALS: BP 116/68
[2020-06-26] MEDS: INSULIN LISPRO 300 UNITS/3 ML VIAL. SQ SCH (08:00)
--- NOTE | 2020-06-26 08:33 | PDOC ---
PROGRESS NOTES Date of Service: DATE: 06/26/20 TIME: 08:33 Chief Complaint Chief Complaint ASSESSMENT: 1. Acute subcutaneous abscess involving the gluteal cleft on the right. 2. Fat-containing umbilical hernia. 3. Diabetes. 4. Perianal tract will likely require incision and drainage. c/w kavitha-rectal abscess PLAN: Admit. a1c , IV fluid, sliding scale insulin. ID consult, Surgery consult. Blood cultures, screening for COVID. IV Zosyn and vancomycin, pending cultures. DVT prophylaxis.sq lovenox Anticipate length of stay greater than 48 hours due to the severity of abscess and diabetes as a complicating factor. Time spent with the patient exam, chart review was 27 minutes, greater than 50% of time was spent with the patient exam, chart review and patient care coordination. D/W RN IN ROOM For possible discharge 06-25 , if okay from surgery. The patient will have followup with surgery 3-10 D/C HELD YESTERDAY DUE TO PAIN ANAEROBIC-AEROBIC CULTURE Preliminary Preliminary MANY GRAM NEGATIVE RODS on 06/25/20 at 0911 FINAL ID= [KLEBSIELLA PNEUMONIAE] MODERATE [STREPTOCOCCUS ANGINOSUS] on 06/25/20 at 1252 KLEBSIELLA PNEUMONIAE STREPTOCOCCUS ANGINOSUS ANTIMICROBIAL SUSCEPTIBILITY Preliminary Comment NEG ELAINE 56 KLEBSIELLA PNEUMONIAE ANTIBIOTIC RESULT INTERPRETATION AMPICILLIN/SULBACTAM 8/4 S AMIKACIN <=16 S AMPICILLIN >16 R AMOXICILLIN/K CLAVULANATE <=8/4 S History of Present Illness History of Present Illness PATIENT: JANETTE KESSLER ACCOUNT: [id number] : 1975 LOC: [address] [place] [address] AGE: 44 SEX: M STATUS: ADM IN LOCATION: [address] [place] [address] ADMIT DATE: 06/24/2020 CHIEF COMPLAINT: Perirectal pain with discomfort, drainage and bleeding. HISTORY OF PRESENT ILLNESS: This 44-year-old male presented with an abscess to the ER in the right buttocks, which began 5 days prior to admission. Pain has become progressively worse over the weekend. He cannot ambulate and is diabetic. He is accompanied by his son who speeks iraqi well , who notes no fever or vomiting, just severe pain. ct was concerning for kavitha-rectal abscess PAST MEDICAL HISTORY: Significant for diabetes. FAMILY HISTORY: Hypertension and diabetes. SOCIAL HISTORY: No tobacco, alcohol or drug use. 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 CURRENT MEDICATIONS: Please see MAR. REVIEW OF SYSTEMS: Denies chills, fever, malaise. Denies decreased vision, headaches. Eyes insect sensitivity. Nasal congestion. Denies chest pain, shortness of breath, abdominal pain, diarrhea. Does have some rectal bleeding. No dysuria or incontinence. No hematuria. No urinary hesitancy. Denies bladder or bowel dysfunction. Denies eczema or hair changes. Complains mainly of perirectal pain and severe pain with ambulation and at rest. Vitals Vitals Vital Signs Date Time Temp Pulse Resp B/P (MAP) Pulse Ox O2 Delivery O2 Flow Rate FiO2 06/26/20 07:26 98.0 60 18 116/68 (84) 95 Room Air 98.0 Physical Exam General: Alert, Oriented X3, Cooperative Heart: Regular rate, Normal S1, Normal S2 Lungs: Clear Abdomen: Normal bowel sounds, Soft, No tenderness Extremities: No cyanosis, Other (wound with drain and packing) Skin: Other (right gluteal area with significant tenderness on exam, difficult to fully examine due to pain, there is small amount of drainage, however still with induration, fluctunace ) Labs LABS GRAM STAIN Final Final GRAM NEGATIVE RODS:FEW SQUAMOUS EPI CELL:NONE SEEN PMN (WBCs):FEW Unless otherwise specified, Testing Performed by: [address] [address] For Inquires, the Physician may contact the Microbiology department at [phone] ANAEROBIC-AEROBIC CULTURE Preliminary Preliminary MANY GRAM NEGATIVE RODS on 06/25/20 at 0911 FINAL ID= [KLEBSIELLA PNEUMONIAE] MODERATE [STREPTOCOCCUS ANGINOSUS] on 06/25/20 at 1252 KLEBSIELLA PNEUMONIAE STREPTOCOCCUS ANGINOSUS ANTIMICROBIAL SUSCEPTIBILITY Preliminary Comment NEG ELAINE 56 KLEBSIELLA PNEUMONIAE ANTIBIOTIC RESULT INTERPRETATION AMPICILLIN/SULBACTAM 8/4 S AMIKACIN <=16 S AMPICILLIN >16 R AMOXICILLIN/K CLAVULANATE <=8/4 S AZTREONAM <=4 S CEFTRIAXONE <=1 S CEFTAZIDIME <=1 S CEFOTAXIME <=2 S CEFOXITIN <=8 S CEFAZOLIN <=2 S CIPROFLOXACIN <=0.25 S CEFEPIME <=2 S CEFUROXIME <=4 S Laboratory Tests Test 06/25/20 12:05 06/25/20 14:10 06/25/20 17:04 06/25/20 21:09 Glucose (Fingerstick) 208 mg/dL (70-99) 243 mg/dL (70-99) 178 mg/dL (70-99) 227 mg/dL (70-99) Test 06/25/20 21:15 06/26/20 07:15 Glucose (Fingerstick) 258 mg/dL (70-99) 198 mg/dL (70-99) Assessment and Plan Assessmemt and Plan Problems Medical Problems: (1) Gluteal abscess Status: Acute (2) Hyperglycemia Status: Acute Comment Review of Relevant I have reviewed the following items ange (where applicable) has been applied. Labs Laboratory Tests Test 06/24/20 11:13 06/24/20 11:25 06/24/20 13:05 06/24/20 14:31 Coronavirus (PCR) Not detected (Not Detected) SARS-CoV-2 Antigen (Rapid) Negative (NEGATIVE) Lactic Acid Level 1.5 mmol/L (0.4-2.0) Glucose (Fingerstick) 204 mg/dL (70-99) 283 mg/dL (70-99) Test 06/24/20 16:03 06/24/20 20:56 06/25/20 06:30 06/25/20 07:57 Glucose (Fingerstick) 221 mg/dL (70-99) 306 mg/dL (70-99) 205 mg/dL (70-99) White Blood Count 8.9 x10^3/uL (4.0-11.0) Red Blood Count 4.73 x10^6/uL (4.30-5.70) Hemoglobin 13.7 g/dL (13.0-17.5) Hematocrit 40.3 % (39.0-53.0) Mean Corpuscular Volume 85 fL (79-100) Mean Corpuscular Hemoglobin 29 pg (25-35) Mean Corpuscular Hemoglobin Concent 34 g/dL (31-37) Red Cell Distribution Width 13.0 % (11.5-14.5) Platelet Count 246 x10^3/uL (140-400) Neutrophils (%) (Auto) 76 % (31-73) Lymphocytes (%) (Auto) 18 % (24-48) Monocytes (%) (Auto) 6 % (0-9) Eosinophils (%) (Auto) 0 % (0-3) Basophils (%) (Auto) 0 % (0-3) Neutrophils # (Auto) 6.8 x10^3/uL (1.8-7.7) Lymphocytes # (Auto) 1.6 x10^3/uL (1.0-4.8) Monocytes # (Auto) 0.6 x10^3/uL (0.0-1.1) Eosinophils # (Auto) 0.0 x10^3/uL (0.0-0.7) Basophils # (Auto) 0.0 x10^3/uL (0.0-0.2) Sodium Level 138 mmol/L (136-145) Potassium Level 3.7 mmol/L (3.5-5.1) Chloride Level 103 mmol/L (98-107) Carbon Dioxide Level 27 mmol/L (21-32) Anion Gap 8 (6-14) Blood Urea Nitrogen 11 mg/dL (8-26) Creatinine 1.0 mg/dL (0.7-1.3) Estimated GFR (Cockcroft-Gault) 80.8 BUN/Creatinine Ratio 11 (6-20) Glucose Level 203 mg/dL (70-99) Calcium Level 8.4 mg/dL (8.5-10.1) Total Bilirubin 0.4 mg/dL (0.2-1.0) Aspartate Amino Transf (AST/SGOT) 24 U/L (15-37) Alanine Aminotransferase (ALT/SGPT) 78 U/L (16-63) Alkaline Phosphatase 124 U/L (46-116) Total Protein 7.0 g/dL (6.4-8.2) Albumin 2.4 g/dL (3.4-5.0) Albumin/Globulin Ratio 0.5 (1.0-1.7) Test 06/25/20 12:05 06/25/20 14:10 06/25/20 17:04 06/25/20 21:09 Glucose (Fingerstick) 208 mg/dL (70-99) 243 mg/dL (70-99) 178 mg/dL (70-99) 227 mg/dL (70-99) Test 06/25/20 21:15 06/26/20 07:15 Glucose (Fingerstick) 258 mg/dL (70-99) 198 mg/dL (70-99) Laboratory Tests Test 06/25/20 12:05 06/25/20 14:10 06/25/20 17:04 06/25/20 21:09 Glucose (Fingerstick) 208 mg/dL (70-99) 243 mg/dL (70-99) 178 mg/dL (70-99) 227 mg/dL (70-99) Test 06/25/20 21:15 06/26/20 07:15 Glucose (Fingerstick) 258 mg/dL (70-99) 198 mg/dL (70-99) Microbiology 06/24/20 Gram Stain - Final, Resulted 06/24/20 Aerobic and Anaerobic Culture - Preliminary, Resulted 06/24/20 Blood Culture - Preliminary, Resulted NO GROWTH AFTER 1 DAY Medications Current Medications Morphine Sulfate (Morphine Sulfate) 4 mg 1X ONCE IM Last administered on at 07:32; Start 06/24/20 at 07:15; Stop 06/24/20 at 07:24; Status DC Iohexol (Omnipaque 350 Mg/ml) 75 ml 1X ONCE IV Last administered on 06/24/20at 08:36; Start 06/24/20 at 08:15; Stop 06/24/20 at 08:16; Status DC Info (CONTRAST GIVEN -- Rx MONITORING) 1 each PRN DAILY PRN MC SEE COMMENTS; Start 06/24/20 at 08:30; Stop 06/26/20 at 08:29; Status DC Lidocaine HCl (Xylocaine-Mpf 1% 2ml Vial) 10 ml 1X ONCE SQ ; Start 06/24/20 at 09:30; Stop 06/24/20 at 09:31; Status DC Vancomycin HCl 1.25 gm/Sodium Chloride 250 ml @ 166.667 mls/hr 1X ONCE IV ; Start 06/24/20 at 10:30; Stop 06/24/20 at 11:59; Status UNV Piperacillin Sod/ Tazobactam Sod 3.375 gm/Sodium Chloride 50 ml @ 100 mls/hr 1X ONCE IV Last administered on 06/24/20at 10:51; Start 06/24/20 at 10:30; Stop 06/24/20 at 10:59; Status DC Vancomycin HCl 2 gm/Sodium Chloride 500 ml @ 250 mls/hr 1X ONCE IV Last administered on 06/24/20at 12:08; Start 06/24/20 at 10:30; Stop 06/24/20 at 12:49; Status DC Morphine Sulfate (Morphine Sulfate) 4 mg PRN Q4HRS PRN IV PAIN; Start 06/24/20 at 10:45; Stop 06/25/20 at 10:12; Status DC Sodium Chloride (Normal Saline Flush) 3 ml QSHIFT PRN IV AFTER MEDS AND BLOOD DRAWS; Start 06/24/20 at 11:45 Sodium Chloride 1,000 ml @ 100 mls/hr Q10H IV Last administered on 06/26/20at 03:57; Start 06/24/20 at 11:45 Ondansetron HCl (Zofran) 4 mg PRN Q4HRS PRN IV NAUSEA/VOMITING; Start 06/24/20 at 11:45; Stop 06/25/20 at 10:06; Status DC Zolpidem Tartrate (Ambien) 5 mg PRN QHS PRN PO INSOMNIA; Start 06/24/20 at 11:45 Acetaminophen (Tylenol) 650 mg PRN Q4HRS PRN PO TEMP OVER 100.4F OR MILD PAIN; Start 06/24/20 at 11:45 Al Hydroxide/Mg Hydroxide (Mylanta Plus Xs) 30 ml PRN DAILY PRN PO HEARTBURN / GAS; Start 06/24/20 at 11:45 Clonidine HCl (Catapres) 0.1 mg PRN Q6HRS PRN PO SBP>160 OR DBP>90; Start at 11:45 Docusate Sodium (Colace) 100 mg PRN BID PRN PO HARD STOOLS; Start 06/24/20 at 11:45 Albuterol Sulfate (Ventolin Neb Soln) 2.5 mg PRN Q4HRS PRN NEB SHORTNESS OF BREATH; Start 06/24/20 at 11:45 Guaifenesin (Robitussin) 200 mg PRN Q4HRS PRN PO COUGH; Start 06/24/20 at 11:45 Lorazepam (Ativan) 0.5 mg PRN Q4HRS PRN PO ANXIETY / AGITATION; Start 06/24/20 at 11:45 Enoxaparin Sodium (Lovenox 40mg Syringe) 40 mg Q24H SQ ; Start 06/24/20 at 12:00 Piperacillin Sod/ Tazobactam Sod (Zosyn Per Pharmacy) 1 each PRN DAILY PRN MC SEE COMMENTS; Start 06/24/20 at 12:00; Stop 06/25/20 at 17:40; Status DC Vancomycin HCl (Vanco Per Pharmacy) 1 each PRN DAILY PRN MC SEE COMMENTS; Start 06/24/20 at 12:00; Stop 06/24/20 at 12:49; Status DC Hydromorphone HCl (Dilaudid) 0.5 mg PRN Q3HRS PRN IVP SEVERE PAIN 7-10 Last administered on 06/25/20at 16:23; Start 06/24/20 at 12:00; Stop 06/25/20 at 17:44; Status DC Insulin Human Lispro (HumaLOG) 0-5 UNITS TIDWMEALS SQ Last administered on 06/25/20at 18:04; Start 06/24/20 at 12:00 Dextrose (Dextrose 50%-Water Syringe) 12.5 gm PRN Q15MIN PRN IV SEE COMMENTS; Start 06/24/20 at 12:00 Piperacillin Sod/ Tazobactam Sod 3.375 gm/Sodium Chloride 50 ml @ 100 mls/hr Q6HRS IV Last administered on 06/25/20at 05:57; Start 06/24/20 at 18:00; Stop 06/25/20 at 13:08; Status DC Diphenhydramine HCl (Benadryl) 25 mg 1X ONCE IVP Last administered on 06/24/20at 12:53; Start 06/24/20 at 13:00; Stop 06/24/20 at 13:01; Status DC Diphenhydramine HCl (Benadryl) 50 mg STK-MED ONCE .ROUTE ; Start 06/24/20 at 12:50; Stop 06/24/20 at 12:50; Status DC Insulin Human Lispro (HumaLOG VIAL for OP,RR ONLY) 0-10 units PRN Q1HR PRN SQ PER PROTOCOL Last administered on 06/24/20at 14:33; Start 06/24/20 at 13:30; Stop 06/25/20 at 10:12; Status DC Bupivacaine HCl/ Epinephrine Bitart (Sensorcain-Epi 0.5% Kit) 30 ml STK-MED ONCE .ROUTE ; Start 06/24/20 at 13:28; Stop 06/24/20 at 13:29; Status DC Fentanyl Citrate (Fentanyl 2ml Vial) 25 mcg PRN Q5MIN PRN IVP MILD PAIN 1-3; Start 06/24/20 at 13:45; Stop 06/25/20 at 13:44; Status DC Fentanyl Citrate (Fentanyl 2ml Vial) 50 mcg PRN Q5MIN PRN IVP MODERATE PAIN 4- 6; Start 06/24/20 at 13:45; Stop 06/25/20 at 13:44; Status DC Morphine Sulfate (Morphine Sulfate) 1 mg PRN Q10MIN PRN IVP SEVERE PAIN 7-10; Start 06/24/20 at 13:45; Stop 06/25/20 at 13:44; Status DC Ringer's Solution 1,000 ml @ 30 mls/hr Q24H IV Last administered on 06/24/20at 13:45; Start 06/24/20 at 13:45; Stop 06/25/20 at 01:44; Status DC Hydromorphone HCl (Dilaudid) 0.5 mg PRN Q10MIN PRN IVP SEVERE PAIN 7-10, 2nd CHOICE; Start 06/24/20 at 13:45; Stop 06/25/20 at 13:44; Status DC Prochlorperazine Edisylate (Compazine) 5 mg PACU PRN PRN IVP NAUSEA, MRX1; Start 06/24/20 at 13:45; Stop 06/25/20 at 13:44; Status DC Fentanyl Citrate (Fentanyl 2ml Vial) 100 mcg STK-MED ONCE .ROUTE ; Start 06/24/20 at 13:45; Stop 06/24/20 at 13:45; Status DC Vancomycin HCl 1.5 gm/Sodium Chloride 500 ml @ 250 mls/hr Q12H IV ; Start at 00:00; Stop 06/24/20 at 13:48; Status DC Phenylephrine HCl (PHENYLEPHRINE in 0.9% NACL PF) 1 mg STK-MED ONCE IV ; Start 06/24/20 at 13:58; Stop 06/24/20 at 13:58; Status DC Propofol (Diprivan) 200 mg STK-MED ONCE IV ; Start 06/24/20 at 14:00; Stop 06/24 at 14:00; Status DC Lidocaine HCl (Lidocaine Pf 2% Vial) 5 ml STK-MED ONCE .ROUTE ; Start 06/24/20 at 14:00; Stop 06/24/20 at 14:00; Status DC Dexamethasone Sodium Phosphate (Decadron) 4 mg STK-MED ONCE .ROUTE ; Start 06/24/20 at 14:00; Stop 06/24/20 at 14:00; Status DC Ondansetron HCl (Zofran) 4 mg STK-MED ONCE .ROUTE ; Start 06/24/20 at 14:00; Stop 06/24/20 at 14:01; Status DC Ketorolac Tromethamine (Toradol 30mg Vial) 30 mg STK-MED ONCE .ROUTE ; Start 06/24/20 at 14:01; Stop 06/24/20 at 14:01; Status DC Sevoflurane (Ultane) 30 ml STK-MED ONCE IH ; Start 06/24/20 at 14:01; Stop 06/24/20 at 14:01; Status DC Propofol (Diprivan) 200 mg STK-MED ONCE IV ; Start 06/24/20 at 14:06; Stop 06/24/20 at 14:06; Status DC Acetaminophen/ Hydrocodone Bitart (Lortab 5/325) 1 tab PRN Q4HRS PRN PO pain mild to mod Last administered on 06/25/20at 14:56; Start 06/24/20 at 14:30; Stop 06/25/20 at 17:44; Status DC Naloxone HCl (Narcan) 0.4 mg PRN Q2MIN PRN IV SEE INSTRUCTIONS; Start 06/24/20 at 14:30 Sodium Chloride 1,000 ml @ 25 mls/hr Q24H IV ; Start 06/24/20 at 14:30 Docusate Sodium (Colace) 100 mg BID PO Last administered on 06/25/20at 21:17; Start 06/24/20 at 21:00 Ondansetron HCl (Zofran) 4 mg PRN Q6HRS PRN IVP NAUESA, 1ST CHOICE Last administered on 06/25/20at 16:23; Start 06/24/20 at 14:30 Insulin Glargine (Lantus Syringe) 8 unit QHS SQ Last administered on 06/25/20at 21:21; Start 06/25/20 at 21:00 Lactobacillus Rhamnosus (Culturelle) 1 cap BID PO Last administered on 06/25/20at 21:17; Start 06/25/20 at 21:00 Amoxicillin/ Clavulanate Potassium (Augmentin 875/ 125mg) 1 tab BID PO Last administered on 06/25/20at 21:17; Start 06/25/20 at 21:00 Acetaminophen/ Hydrocodone Bitart (Lortab 10/325) 1 tab PRN Q6HRS PRN PO PAIN SEVERE; Start 06/25/20 at 17:45 Active Scripts Active Augmentin 875-125 Tablet (Amoxicillin/Potassium Clav) 1 Each Tablet 1 Tab PO BID 10 Days Lantus (Insulin Glargine,Hum.rec.anlog) 100 Unit/1 Ml Vial 8 Unit SQ QHS 30 Days Culturelle (Lactobacillus Rhamnosus Gg) 1 Each Cap.sprink 1 Cap PO BID 30 Days Dok (Docusate Sodium) 100 Mg Capsule 100 Mg PO BID 30 Days Acetaminophen 325 Mg Tablet 650 Mg PO PRN Q4HRS PRN 30 Days Vitals/I & O Vital Sign - Last 24 Hours 06/25/20 06/25/20 06/25/20 06/25/20 09:10 11:00 14:56 15:00 Temp 97.8 97.7 97.8 97.7 Pulse 70 66 Resp 18 18 B/P (MAP) 142/60 (87) 112/62 (79) Pulse Ox 96 96 O2 Delivery Room Air Room Air Room Air Room Air 06/25/20 06/25/20 06/25/20 06/25/20 15:56 16:23 16:53 19:30 Temp 98.5 98.5 Pulse 73 Resp 18 B/P (MAP) 93/38 (56) Pulse Ox 95 O2 Delivery Room Air Room Air Room Air Room Air 06/25/20 06/25/20 06/26/20 06/26/20 20:10 23:44 03:25 07:26 Temp 98.5 98.4 98.0 98.5 98.4 98.0 Pulse 69 69 60 Resp 18 18 18 B/P (MAP) 97/53 (68) 86/45 (59) 116/68 (84) Pulse Ox 95 98 95 O2 Delivery Room Air Room Air Room Air Room Air Intake and Output 06/25/20 06/25/20 06/26/20 15:00 23:00 07:00 Intake Total 120 ml 360 ml Balance 120 ml 360 ml Justicifation of Admission Dx: Justifications for Admission: Justification of Admission Dx: Yes Cellulitis: Cellulitis WALTER NG MD Jun 26, 2020 08:33
[2020-06-26] MEDS: DOCUSATE SODIUM 100 MG CAPSULE. PO SCH (08:56)
[2020-06-26] MEDS: LACTOBACILLUS RHAMNOSUS GG 1 CAPSULE. PO SCH (08:56)
[2020-06-26] MEDS: AMOXICILLIN/K CLAV 875/125MG TABLET. PO SCH (08:57)
--- NOTE | 2020-06-26 09:44 | PDOC ---
Infectious Disease Note Subjective Subjective Patient is feeling better ROS ROS Nausea vomiting diarrhea Vital Sign Vital Signs Vital Signs Date Time Temp Pulse Resp B/P (MAP) Pulse Ox O2 Delivery O2 Flow Rate FiO2 06/26/20 07:26 98.0 60 18 116/68 (84) 95 Room Air 98.0 Physical Exam PHYSICAL EXAM GENERAL: Alert, oriented gentleman, not in distress. VITAL SIGNS: Stable, afebrile. HEENT: NAD. NECK: Supple, no JVP, no lymphadenopathy. LUNGS: Clear. HEART: S1, S2 regular. ABDOMEN: Benign. EXTREMITIES: No edema, cyanosis. SKIN: Unremarkable. Perirectal area seen. [place] in place. There is no induration. There is no erythema. NEUROLOGIC: The patient is alert, awake and appropriate. No focal neurologic deficit. Labs Lab Laboratory Tests Test 06/25/20 12:05 06/25/20 14:10 06/25/20 17:04 06/25/20 21:09 Glucose (Fingerstick) 208 mg/dL (70-99) 243 mg/dL (70-99) 178 mg/dL (70-99) 227 mg/dL (70-99) Test 06/25/20 21:15 06/26/20 07:15 Glucose (Fingerstick) 258 mg/dL (70-99) 198 mg/dL (70-99) Micro GRAM STAIN Final Final GRAM NEGATIVE RODS:FEW SQUAMOUS EPI CELL:NONE SEEN PMN (WBCs):FEW Unless otherwise specified, Testing Performed by: [address] [address] For Inquires, the Physician may contact the Microbiology department at [phone] ANAEROBIC-AEROBIC CULTURE Preliminary Preliminary MANY GRAM NEGATIVE RODS on 06/25/20 at 0911 FINAL ID= [KLEBSIELLA PNEUMONIAE] MODERATE [STREPTOCOCCUS ANGINOSUS] on 06/25/20 at 1252 KLEBSIELLA PNEUMONIAE STREPTOCOCCUS ANGINOSUS ANTIMICROBIAL SUSCEPTIBILITY Preliminary Comment NEG ELAINE 56 KLEBSIELLA PNEUMONIAE ANTIBIOTIC RESULT INTERPRETATION AMPICILLIN/SULBACTAM 8/4 S AMIKACIN <=16 S AMPICILLIN >16 R AMOXICILLIN/K CLAVULANATE <=8/4 S AZTREONAM <=4 S CEFTRIAXONE <=1 S CEFTAZIDIME <=1 S CEFOTAXIME <=2 S CEFOXITIN <=8 S CEFAZOLIN <=2 S CIPROFLOXACIN <=0.25 S CEFEPIME <=2 S CEFUROXIME <=4 S RUN DATE: 06/26/20 [facility] *LIVE* PAGE 2 RUN TIME: 0835 Specimen Inquiry SPEC: [id number] PATIENT: AIDE KESSLERAN [id number] (Continued) Procedure Result CONTINUED ON NEXT PAGE RUN DATE: 06/26/20 [facility] *LIVE* PAGE 3 RUN TIME: 0835 Specimen Inquiry SPEC: [id number] PATIENT: JANETTE KESSLER [id number] (Continued) Procedure Result ---- -------- ANTIMICROBIAL SUSCEPTIBILITY Preliminary (continued) CEFTAZIDIME/AVIBACTAM <=4 S ERTAPENEM <=0.5 S GENTAMICIN <=2 S LEVOFLOXACIN <=0.5 S MEROPENEM <=1 S PIPERACILLIN/TAZOBACTAM <=8 S TRIMETHOPRIM/SULFAMETHOXAZOLE <=0.5/9.5 S TETRACYCLINE <=4 S TOBRAMYCIN <=2 S Unless otherwise specified, Testing Performed by: [address] [address] For Inquires, the Physician may contact the Microbiology department at [phone] Objective Assessment IMPRESSION: 1. Perirectal abscess, status post incision and drainage. 2. Diabetes. 3. Vancomycin, red man syndrome. Plan Plan of Care ` Changed to oral antibiotics patient can be discharged to follow-up with surgery ELIO MELARA MD Jun 26, 2020 09:44
--- NOTE | 2020-06-26 09:45 | NUR ---
SW following. Discussed with RN, pt from home with family, room air, ada diet, COVID-19 negative. Discharge order for pt to discharge home with self care. SW will continue to follow.
[2020-06-26] MEDS ORDERED: AMOX1TAB11 PO (10:00)
[2020-06-26] MEDS ORDERED: HYDR-2769 PO (10:00)
[2020-06-26 10:37] VITALS: BP 108/57
--- NOTE | 2020-06-26 12:10 | NUR ---
pt discharged home with family. wound care reviewed w/ pt, , and son using casting cleaner phone. also provided printed education in Ivorian. son does speak Luxembourgish. Meds and follow up reviewed. pt and family voiced understanding. prescription for pain med given.
== END 2020-06-26 12:12 | disposition home or self-care (01) | DRG 580 ==
LOC: ER 06:42 → ED HOLD 10:45 → 4 NORTH 14:18
PROVIDERS: ADMIT Family Medicine; ATTEND Family Medicine
PROC: 0J990ZZ Drainage of Buttock Subcutaneous Tissue and Fascia, Open Approach (ICD-10-PCS; principal; 2020-06-24 13:00)
DX: L02.31 Cutaneous abscess of buttock (principal); K61.1 Rectal abscess; E87.2 Acidosis; K62.5 Hemorrhage of anus and rectum; E11.65 Type 2 diabetes mellitus with hyperglycemia; K42.9 Umbilical hernia without obstruction or gangrene; Z86.16 Personal history of COVID-19; Z20.822 Contact with and (suspected) exposure to COVID-19; B96.1 Klebsiella pneumoniae [K. pneumoniae] as the cause of diseases classified elsewhere; B95.4 Other streptococcus as the cause of diseases classified elsewhere; Z82.49 Family history of ischemic heart disease and other diseases of the circulatory system; Z83.3 Family history of diabetes mellitus
CPT/HCPCS: 36415; 72193; 80053; 82962; 83036; 83605; 85025; 87040; 87071; 87075; 87426; 96365; 96367; 96372; 96375; 99285; A6253; J1100; J1170; J1200; J1815; J1885; J2270; J2370; J2405; J2543; J2704; J3010; J3370; J3490; J7030; J7040; J7120; Q9967; U0003; G0378

== ENCOUNTER 2020-09-17 21:24 | Emergency (ER) | payer MEDICAID ==
[~2020-09-17] VITALS: Ht 170.2 cm; Wt 100.6 kg
[~2020-09-17 21:24] MED LIST: ACET325T21 PO; AMOX1TAB11 PO; AMOX1TAB61 PO; DOCU-153 PO; HYDR-2769 PO; INSU100V8 SQ; LACT1CAP19 PO
[2020-09-17] MEDS ORDERED: diphenhydrAMINE 50 MG/ML VIAL IVP ONE (22:30)
[2020-09-17] MEDS ORDERED: IV NORMAL SALINE 1000ML BAG 1,000 ML IV ONE (22:30)
[2020-09-17] MEDS ORDERED: PROCHLORPERAZINE 10 MG/2 ML VIAL. IV ONE (22:30)
[2020-09-17 22:54] LABS: BASO # 0.1 x10^3/uL (0.0-0.2); BASO % 1 % (0-3); EOS # 0.2 x10^3/uL (0.0-0.7); EOS % 2 % (0-3); HEMATOCRIT 44.7 % (39.0-53.0); HEMOGLOBIN 15.3 g/dL (13.0-17.5); LYMPH # 2.5 x10^3/uL (1.0-4.8); LYMPH % 31 % (24-48); MEAN CORPUSCULAR HEMOGLOBIN 29 pg (25-35); MEAN CORPUSCULAR HGB CONC 34 g/dL (31-37); MEAN CORPUSCULAR VOLUME 85 fL (79-100); MONO # 0.7 x10^3/uL (0.0-1.1); MONO % 9 % (0-9); NEUT # 4.7 x10^3/uL (1.8-7.7); NEUT % 58 % (31-73); PLATELET COUNT 259 x10^3/uL (140-400); RED BLOOD COUNT 5.27 x10^6/uL (4.30-5.70); RED CELL DISTRIBUTION WIDTH 13.4 % (11.5-14.5); WHITE BLOOD COUNT 8.1 x10^3/uL (4.0-11.0)
--- NOTE | 2020-09-17 22:55 | PHYS DOC ---
Past Medical History Past Medical History: Diabetes-Type II Past Surgical History: Other Additional Past Surgical Histo: INFECTION IN RECTUM Smoking Status: Never Smoker Alcohol Use: None General Adult EDM: Chief Complaint: HEADACHE HPI: HPI: Patient is a 45 year old male with history of diabetes type 2 who presents to the ED today complaining of a 10 out of 10 left-sided headache specifically behind the left eye radiating to the left ear and left cheek, symptoms began 2 days ago. Patient reports the headache waking him up. States the headache has been intermittent but got worse this evening. States yesterday he felt the headache was a migraine and took hydrocodone he had from a previous prescription. Patient states the hydrocodone did not help much. It caused the headache to be worse. Denies any nausea, vomiting. Denies any neck pain. Denies any fever. States lights exacerbate the headache. Review of Systems: Review of Systems: Constitutional: Denies fever or chills. [] Eyes: Denies change in visual acuity. [] HENT: Denies nasal congestion or sore throat. [] Respiratory: Denies cough or shortness of breath. [] Cardiovascular: Denies chest pain or edema. [] GI: Denies abdominal pain, nausea, vomiting, bloody stools or diarrhea. [] : Denies dysuria. [] Musculoskeletal: Denies back pain or joint pain. [] Integument: Denies rash. [] Neurologic: Reports headache, denies focal weakness or sensory changes. [] ] Psychiatric: Denies depression or anxiety. [] Heart Score: C/O Chest Pain: N/A Risk Factors: Risk Factors: DM, Current or recent (<one month) smoker, HTN, HLP, family history of CAD, obesity. Risk Scores: Score 0 - 3: 2.5% MACE over next 6 weeks - Discharge Home Score 4 - 6: 20.3% MACE over next 6 weeks - Admit for Clinical Observation Score 7 - 10: 72.7% MACE over next 6 weeks - Early Invasive Strategies Current Medications: Current Medications Medications (Trade) Dose Ordered Sig/Titi Start Time Stop Time Status Last Admin Dose Admin Diphenhydramine HCl (Benadryl) 25 mg 1X ONCE 09/17/20 22:30 09/17/20 22:36 DC Prochlorperazine Edisylate (Compazine) 10 mg 1X ONCE 09/17/20 22:30 09/17/20 22:36 DC Sodium Chloride 1,000 ml @ 1,000 mls/hr 1X ONCE 09/17/20 22:30 09/17/20 23:29 Allergies: Allergies: Allergies Coded Allergies Type Severity Reaction Last Updated Verified vancomycin Allergy Unknown 09/17/20 Yes Physical Exam: PE: Constitutional: Well developed, well nourished, no acute distress, non-toxic appearance. [] HENT: Normocephalic, atraumatic, bilateral external ears normal, oropharynx moist, no oral exudates, nose normal. [] Eyes: PERRLA, EOMI, conjunctiva normal, no discharge. [] Neck: Normal range of motion, no tenderness, supple, no stridor. [] Cardiovascular:Heart rate regular rhythm, no murmur [] Lungs & Thorax: Bilateral breath sounds clear to auscultation [] Abdomen: Bowel sounds normal, soft, no tenderness, no masses, no pulsatile masses. [] Skin: Warm, dry, no erythema, no rash. [] Back: No tenderness, no CVA tenderness. [] Extremities: No tenderness, no cyanosis, no clubbing, ROM intact, no edema. [] Neurologic: Alert and oriented X 3, normal motor function, normal sensory function, no focal deficits noted. Cranial nerves II through XII intact Psychologic: Affect normal, judgement normal, mood normal. [] Current Patient Data: Vital Signs: Vital Signs Date Time Temp Pulse Resp B/P (MAP) Pulse Ox O2 Delivery O2 Flow Rate FiO2 09/17/20 21:55 98.1 80 10 151/92 (111) 96 Room Air 98.1 EKG: EKG: [] Radiology/Procedures: Radiology/Procedures: []PROCEDURE: CT HEAD WO CONTRAST STUDY: CT head without contrast INDICATION: Headache. COMPARISON: None. TECHNIQUE: Axial CT imaging through the head without the use of intravenous contrast. Sagittal and coronal reformats were obtained. One or more of the following individualized dose reduction techniques were utilized for this examination: 1. Automated exposure control 2. Adjustment of the mA and/or kV according to patient size 3. Use of iterative reconstruction technique. FINDINGS: No acute intracranial hemorrhage. No mass effect, midline shift or hydrocephalus. Maintained mckeon-white matter interface. Partial opacification of left ethmoidal air cells. Mucosal thickening of the left maxillary sinus. The mastoid air cells are normally aerated. Unremarkable calvarium. IMPRESSION: 1. No acute intracranial abnormality by CT. 2. Findings involving the left ethmoidal air cells and maxillary sinus which could be related to active sinusitis. Electronically signed by: LAITH BAEZ MD (09/17/2020 10:53 PM) [facility] DICTATED and SIGNED BY: LAITH BAEZ MD DATE: 09/17/20 [id number] 0 Course & Med Decision Making: Course & Med Decision Making Pertinent Labs and Imaging studies reviewed. (See chart for details) This is a 45-year-old male patient presenting to the ED today with a headache that began 2 days ago. CBC, CMP with no acute findings. CT of the head is negative for any acute findings, noted for active sinusitis. Started on Augmentin. Patient was given a liter of fluid, Toradol, Benadryl, Solu-Medrol, Augmentin and Compazine. Feeling better. Discharge to home on Augmentin. Follow-up with PCP in 1 to 2 weeks Son interpreted for Kady Christian Disclaimer: Anahi Disclaimer: This electronic medical record was generated, in whole or in part, using a voice recognition dictation system. Departure Departure Impression: Primary Impression: Acute sinusitis Qualified Codes: J01.90 - Acute sinusitis, unspecified Additional Impression: Sinus headache Disposition: HOME / SELF CARE / HOMELESS Condition: STABLE Referrals: NO PCP (PCP) Follow-up with your doctor in 1 to 2 weeks Patient Instructions: Sinusitis Additional Instructions: You were seen in the emergency room for a headache and noted to have a sinus infection. Please take the prescribed antibiotics until completed. Please follow-up with your own doctor in 1 to 2 weeks. Scripts Promethazine Hcl (PROMETHAZINE HCL) 25 Mg Tablet 1 TAB PO PRN Q6HRS, #20 TAB Prov: JAMES ATKINS SECURITY TESTER 09/17/20 Sumatriptan Succinate (IMITREX) 50 Mg Tablet 1 TAB PO UD, #9 TAB Take 1 tablet at the onset of a headache, repeat in 2 hours if symptoms persist. Do not take more than 2 tablets in 24 hours Prov: JAMES ATKINS SECURITY TESTER 09/17/20 Amoxicillin/Potassium Clav (AUGMENTIN 875-125 TABLET) 1 Each Tablet 1 TAB PO BID for 10 Days, #20 TAB 0 Refills Prov: JAMES ATKINS APRN 09/17/20 JAMES ATKINS APRN Sep 17, 2020 22:55
--- NOTE | 2020-09-17 22:55 | RAD ---
STUDY: CT head without contrast INDICATION: Headache. COMPARISON: None. TECHNIQUE: Axial CT imaging through the head without the use of intravenous contrast. Sagittal and co rené reformats were obtained. One or more of the following individualized dose reduction techniques were utilized for this examinat ion: 1. Automated exposure control 2. Adjustment of the mA and/or kV according to patient size 3. Use of iterative reconstruction technique. FINDINGS: No acute intracranial hemorrhage. No mass effect, midline shift or hydrocephalus. Maintained mckeon-whi te matter interface. Partial opacification of left ethmoidal air cells. Mucosal thickening of the left maxillary sinus. Th e mastoid air cells are normally aerated. Unremarkable calvarium. IMPRESSION: 1. No acute intracranial abnormality by CT. 2. Findings involving the left ethmoidal air cells and maxillary sinus which could be related to act chaka sinusitis. Electronically signed by: LAITH BAEZ MD (09/17/2020 10:53 PM) [facility]
[2020-09-17 23:10] LABS: CALCIUM 9.2 mg/dL (8.5-10.1); CREATININE 1.2 mg/dL (0.7-1.3); GFR 65.2; POTASSIUM 4.1 mmol/L (3.5-5.1)
[2020-09-17 23:15] LABS: ALBUMIN 3.2 g/dL (3.4-5.0); ALBUMIN/GLOBULIN RATIO 0.7 (1.0-1.7); TOTAL BILIRUBIN 0.1 mg/dL (0.2-1.0); TOTAL PROTEIN 7.7 g/dL (6.4-8.2)
[2020-09-17] MEDS ORDERED: AMOXICILLIN/K CLAV 875/125MG TABLET. PO ONE (23:15)
[2020-09-17] MEDS ORDERED: KETOROLAC 30 MG/ML VIAL. IVP ONE (23:15)
[2020-09-17] MEDS ORDERED: AMOX1TAB61 PO (23:25)
[2020-09-17] MEDS ORDERED: PROM25TA10 PO (23:25)
[2020-09-17] MEDS ORDERED: SUMA50TA3 PO (23:25)
[2020-09-17 23:29] VITALS: BP 102/60
[2020-09-17] MEDS ORDERED: methylPREDNISolone SOD SUCC PF 125 MG/2 ML VIAL. IV ONE (23:30)
== END 2020-09-17 23:50 | disposition home or self-care (01) ==
LOC: ER 21:24
DX: J01.90 Acute sinusitis, unspecified (principal); G43.909 Migraine, unspecified, not intractable, without status migrainosus; E11.9 Type 2 diabetes mellitus without complications
CPT/HCPCS: 36415; 70450; 80053; 85025; 96361; 96374; 96375; 99284; G0480; J0780; J1200; J1885; J2930; J7030

== ENCOUNTER 2021-07-25 10:09 | Emergency (ER) | payer SELFPAY ==
[~2021-07-25] VITALS: Ht 170.2 cm; Wt 100.0 kg
[~2021-07-25 10:09] MED LIST changes: +DOCU-148 PO; -DOCU-153 PO; +PROM25TA10 PO; +SUMA50TA3 PO
[2021-07-25 10:55] VITALS: BP 108/83
[2021-07-25] MEDS ORDERED: IBUPROFEN 200 MG TABLET. PO ONE (12:00)
[2021-07-25] MEDS ORDERED: ACETAMINOPHEN 325 MG TABLET. PO ONE (12:00)
[2021-07-25 12:26] LABS: BASO % 1 % (0-3); EOS # 0.3 x10^3/uL (0.0-0.7); EOS % 3 % (0-3); HEMATOCRIT 48.7 % (39.0-53.0); HEMOGLOBIN 16.5 g/dL (13.0-17.5); LYMPH # 2.9 x10^3/uL (1.0-4.8); LYMPH % 32 % (24-48); MEAN CORPUSCULAR HEMOGLOBIN 29 pg (25-35); MEAN CORPUSCULAR HGB CONC 34 g/dL (31-37); MEAN CORPUSCULAR VOLUME 85 fL (79-100); MONO # 0.7 x10^3/uL (0.0-1.1); MONO % 8 % (0-9); NEUT # 5.1 x10^3/uL (1.8-7.7); NEUT % 56 % (31-73); PLATELET COUNT 265 x10^3/uL (140-400); RED BLOOD COUNT 5.74 x10^6/uL (4.30-5.70); RED CELL DISTRIBUTION WIDTH 13.7 % (11.5-14.5); WHITE BLOOD COUNT 8.9 x10^3/uL (4.0-11.0)
[2021-07-25 12:36] LABS: CREATININE 1.1 mg/dL (0.7-1.3); GFR 72.1; POTASSIUM 3.9 mmol/L (3.5-5.1)
[2021-07-25 12:41] LABS: ALBUMIN 3.4 g/dL (3.4-5.0); ALBUMIN/GLOBULIN RATIO 0.7 (1.0-1.7); TOTAL BILIRUBIN 0.3 mg/dL (0.2-1.0); TOTAL PROTEIN 8.2 g/dL (6.4-8.2)
[2021-07-25] MEDS ORDERED: METF10007 PO (14:09)
--- NOTE | 2021-07-25 14:09 | PHYS DOC ---
Past Medical History Past Medical History: Diabetes-Type II Past Surgical History: No Surgical History, Other Additional Past Surgical Histo: INFECTION IN RECTUM Smoking Status: Never Smoker Alcohol Use: None General Adult EDM: Chief Complaint: UPPER EXTREMITY PAIN HPI: HPI: Patient is a 45-year-old male who presents to the emergency department complaining of numbness and tingling to his feet and hands that started yesterday morning at approximately 6:00 when he woke up. Patient states he has intermittent pain is currently a 9 out of 10 to both his feet and hands. Patient denies injury. Patient states he is diabetic and takes Metformin twice a day. Patient states he has not seen his primary care doctor for over a year and is concerned that his diabetes is worsening. Patient denies chest pains, denies chest palpitations, denies shortness of breath, denies recent fever or chills, denies increased urinary frequency or increased thirst, denies urinary incontinence, denies nausea, vomiting, diarrhea. Patient denies visual disturbances, denies syncopal or near syncopal episodes, denies headaches. Patient denies other physical complaints or physical concerns. Patient reports his last hemoglobin A1c was drawn over a year ago. Patient states he does not check his blood sugars at home very often and noted them to be over 300. Review of Systems: Review of Systems: 14 body systems of review of systems have been reviewed. See HPI for pertinent positives and negative responses, otherwise all other systems are negative, nonpertinent or noncontributory. Constitutional: Negative except as outlined in HPI above. Skin: Negative except as outlined in HPI above. Eyes: Negative except as outlined in HPI above. HENT: Negative except as outlined in HPI above. Respiratory: Negative except as outlined in HPI above. Cardiovascular: Negative except as outlined in HPI above. GI: Negative except as outlined in HPI above. : Negative except as outlined in HPI above. Musculoskeletal: Negative except as outlined in HPI above. Integument: Negative except as outlined in HPI above. Neurologic: Negative except as outlined in HPI above. Endocrine: Negative except as outlined in HPI above. Lymphatic: Negative except as outlined in HPI above. Psychiatric: Negative except as outlined in HPI above. Heart Score: C/O Chest Pain: No Risk Factors: Risk Factors: DM, Current or recent (<one month) smoker, HTN, HLP, family history of CAD, obesity. Risk Scores: Score 0 - 3: 2.5% MACE over next 6 weeks - Discharge Home Score 4 - 6: 20.3% MACE over next 6 weeks - Admit for Clinical Observation Score 7 - 10: 72.7% MACE over next 6 weeks - Early Invasive Strategies Current Medications: Current Medications Medications (Trade) Dose Ordered Sig/Titi Start Time Stop Time Status Last Admin Dose Admin Acetaminophen (Tylenol) 650 mg 1X ONCE 07/25/21 12:00 07/25/21 12:04 DC 07/25/21 12:11 650 MG Ibuprofen (Motrin) 600 mg 1X ONCE 07/25/21 12:00 07/25/21 12:04 DC 07/25/21 12:11 600 MG Allergies: Allergies: Allergies Coded Allergies Type Severity Reaction Last Updated Verified vancomycin Allergy Unknown 09/17/20 Yes Physical Exam: PE: Constitutional: Well developed, well nourished, no acute distress, non-toxic appearance. 45-year-old male in no apparent distress. HENT: Normocephalic, atraumatic. Oropharynx moist, pink, no deep tissue infectious process appreciated. Bilateral TMs intact and within normal limits, no lymphadenopathy of the head or neck appreciated. Eyes: Conjunctiva normal, no discharge. No scleral icterus. Neck: Normal range of motion, no stridor. No meningismus signs, no nuchal rigidity. Cardiovascular: No cyanosis appreciated, distal cap refill less than 2 seconds. Regular rate and rhythm, heart sounds S1-S2 auscultation. Lungs & Thorax: Patient is in no respiratory distress, no audible adventitious lung sounds appreciated. Lung sounds clear to auscultation all lung webster, normal work of breathing. Abdomen: Nontender, no abnormalities noted. Skin: Warm, dry, no erythema, no rash. Back: No tenderness, no deformities. Extremities: No tenderness, no cyanosis, no clubbing, ROM intact, no edema. +2 dorsalis pedis pulses bilaterally, +2 radial pulses bilaterally, distal cap refill less than 2 seconds all extremities. Neurologic: Alert and oriented X 3, normal motor function, normal sensory function, no focal deficits noted. Psychologic: Affect normal, judgement normal, mood normal. Current Patient Data: Labs: Laboratory Tests Test 07/25/21 12:15 White Blood Count 8.9 x10^3/uL (4.0-11.0) Red Blood Count 5.74 x10^6/uL (4.30-5.70) H Hemoglobin 16.5 g/dL (13.0-17.5) Hematocrit 48.7 % (39.0-53.0) Mean Corpuscular Volume 85 fL (79-100) Mean Corpuscular Hemoglobin 29 pg (25-35) Mean Corpuscular Hemoglobin Concent 34 g/dL (31-37) Red Cell Distribution Width 13.7 % (11.5-14.5) Platelet Count 265 x10^3/uL (140-400) Neutrophils (%) (Auto) 56 % (31-73) Lymphocytes (%) (Auto) 32 % (24-48) Monocytes (%) (Auto) 8 % (0-9) Eosinophils (%) (Auto) 3 % (0-3) Basophils (%) (Auto) 1 % (0-3) Neutrophils # (Auto) 5.1 x10^3/uL (1.8-7.7) Lymphocytes # (Auto) 2.9 x10^3/uL (1.0-4.8) Monocytes # (Auto) 0.7 x10^3/uL (0.0-1.1) Eosinophils # (Auto) 0.3 x10^3/uL (0.0-0.7) Basophils # (Auto) 0.0 x10^3/uL (0.0-0.2) Sodium Level 132 mmol/L (136-145) L Potassium Level 3.9 mmol/L (3.5-5.1) Chloride Level 98 mmol/L (98-107) Carbon Dioxide Level 21 mmol/L (21-32) Anion Gap 13 (6-14) Blood Urea Nitrogen 14 mg/dL (8-26) Creatinine 1.1 mg/dL (0.7-1.3) Estimated GFR (Cockcroft-Gault) 72.1 BUN/Creatinine Ratio 13 (6-20) Glucose Level 300 mg/dL (70-99) H Calcium Level 9.0 mg/dL (8.5-10.1) Total Bilirubin 0.3 mg/dL (0.2-1.0) Aspartate Amino Transferase (AST) 5 U/L (15-37) L Alanine Aminotransferase (ALT) 54 U/L (16-63) Alkaline Phosphatase 84 U/L (46-116) Total Protein 8.2 g/dL (6.4-8.2) Albumin 3.4 g/dL (3.4-5.0) Albumin/Globulin Ratio 0.7 (1.0-1.7) L Laboratory Tests 07/25/21 12:15 Laboratory Tests 07/25/21 12:15 Vital Signs: Vital Signs Date Time Temp Pulse Resp B/P (MAP) Pulse Ox O2 Delivery O2 Flow Rate FiO2 07/25/21 10:55 97.9 85 16 108/83 (91) 96 Room Air 97.9 EKG: EKG: [] Radiology/Procedures: Radiology/Procedures: [] Course & Med Decision Making: Course & Med Decision Making Pertinent Labs and Imaging studies reviewed. (See chart for details) 45-year-old male, vital signs reviewed, presents emergency department concerning intermittent numbness and tingling with intermittent pain to his hands and feet that started yesterday. Physical examination is unremarkable, patient's explanation of events consistent with diabetic neuropathy, will order CBC, CMP, will give Tylenol and ibuprofen for reported 9 out of 10 pain to his hands and feet. Upon reevaluation of the patient, patient reports pain is resolved, states continued intermittent numbness and tingling to his hands and feet. Discussed with patient my concerns he has not followed up with a primary care provider since being diagnosed out of the emergency department over a year ago for diabetes mellitus, started on Metformin twice a day, has not had a hemoglobin A1c drawn in over a year. Patient did then reveal he has been taking his father's diabetic medicines, has been out of his prescription for 6 months or longer now. Discussed with patient will prescribe Metformin regimen, will give information for area healthcare clinics and healthcare providers to establish primary care for ongoing diabetic management. Discussed with patient the importance of close diabetic management, healthcare side effects of uncontrolled and untreated diabetes, patient gave verbal understanding of and is amenable to ED discharge planning. Discussed with the patient all findings and diagnostic testing as well as the need to follow-up with their primary care provider for further evaluation and treatment or return to the ED if any new or worsening symptoms. Strict return precautions were also discussed at length, the patient voiced understanding and agreement with the discharge planning. The patient was nontoxic in appearance, in no apparent distress, and hemodynamically stable at the time of disposition. Patient is Tamazight-speaking, used leather grader iCrimefighter service for all interactions with patient. TinderBox Disclaimer: DragWebcrunch Disclaimer: This electronic medical record was generated, in whole or in part, using a voice recognition dictation system. Departure Departure Impression: Primary Impression: Diabetic neuropathy Qualified Codes: E11.49 - Type 2 diabetes mellitus with other diabetic stephanie rological complication Additional Impression: Type 2 diabetes mellitus Qualified Codes: E11.69 - Type 2 diabetes mellitus with other specified complication Disposition: 01 HOME / SELF CARE / HOMELESS Condition: GOOD Referrals: NO PCP (PCP) Patient Instructions: Diabetes and Small Vessel Disease, Diabetes, FAQs, Diabetic Neuropathy Additional Instructions: Lo vieron hoy en el departamento de emergencias por entumecimiento y hormigueo con dolor en las gregor y los pies. Le dieron Tylenol para el dolor, esto pareci aliviar tidwell dolor hoy, sin embargo, contina teniendo entumecimiento y hormigueo. Esta sensacin de entumecimiento y hormigueo es un efecto secundario comn de la diabetes tipo 2, lo llamamos neuropata diabtica. [place] puede empeorar si no mantiene tidwell diabetes bajo control. Usted indic que no macario visto a un mdico de atencin primaria desde que le diagnosticaron diabetes en el departamento de emergencias hace ms de un ao. Le volver a recetar tidwell metformina, tmela dos veces al da hasta que un mdico de rodrigue ajuste lo contrario. Es muy importante que tidwell mdico vuelva a medir tidwell hemoglobina A1c y controle rosa medicamentos para la diabetes, l podr recetarle medicamentos para ayudarlo con los efectos secundarios de tidwell neuropata. Por favor llame hoy o el lunes para clarisa sung lo antes posible. Boaz por visitar nuestro Departamento de Emergencias. Fue un placer atenderlo hoy en el departamento de emergencias y le agradecemos que nos haya confiado tidwell atencin. Si surge algn problema adicional, no dude en volver a visitarnos. Yaa un seguimiento con tidwell proveedor de atencin primaria para que puedan planificar atencin adicional si es necesario y conocer el problema que tuvo. Si los sntomas empeoran, regrese al Departamento de Emergencias. Cualquier sntoma preocupante que comience, kieran dolor en el pecho, falta de aire, debilidad o entumecimiento en un lado del cuerpo, fiebre tim o cualquier otro sntoma preocupante, regresa a la milton de emergencias. You were seen today in the emergency department for numbness and tingling with pain to your hands and feet. You were given Tylenol for pain, this seemed to help your pain today however you continue to have numbness and tingling. This numbness and tingling sensation is a common side effect of type 2 diabetes, we call this diabetic neuropathy. This can worsen if you do not keep your diabetes under control. You had indicated you have not seen a primary care physician since you were diagnosed with diabetes in the emergency department over a year ago. I will represcribe your Metformin, please take twice a day until otherwise adjusted by a family care doctor. It is very important that you have your hemoglobin A1c redrawn and your diabetes medications controlled by your doctor, he will be able to prescribe medications to help with your neuropathy side effects. Please call today or Wednesday for the soonest appointment. Thank you for visiting our Emergency Department. It was a pleasure taking care of you today in the emergency department and we appreciate you trusting us with your care. If any additional problems come up don't hesitate to return to visit us. Please follow up with your primary care provider so they can plan additional care if needed and know about the problem that you had. If symptoms worsen come back to the Emergency Department. Any concerning symptoms that start such as chest pain, shortness of air, weakness or numbness on one side of the body, running high fevers or any other concerning symptoms return to the ER. Bobby [facility] [place] [id number] [facility] [address] [place] [address] [facility] [address] [place] [address] [facility] [address] [place] [address] [facility] [address] [place] [address] [facility] [address] [place] [address] [facility] [place] [address] [place] [address] [facility] [address] [place] [address] [facility] [address] [place] [address] [facility] [address] [place] [address] Scripts Metformin Hcl (METFORMIN HCL) 1,000 Mg Tablet 1000 MG PO BIDWMEALS for Type II DM, #60 TAB 2 Refills Prov: NICHOL SORIA APRN 07/25/21 NICHOL SORIA APRN Jul 25, 2021 14:09
== END 2021-07-25 14:00 | disposition home or self-care (01) ==
LOC: ER 10:09
DX: E11.40 Type 2 diabetes mellitus with diabetic neuropathy, unspecified (principal); Z88.1 Allergy status to other antibiotic agents
CPT/HCPCS: 36415; 80053; 85025; 99283